=== PATIENT | male | born 1965 | race Caucasian/White ===

== ENCOUNTER 2024-12-05 10:51 | Outpatient (AMB) | payer BC, SELFPAY ==
--- NOTE | 2024-12-05 11:00 | MHC.PC.OV ---
Vital Signs 12/05/24 11:01 Height 5 ft 7.32 in Weight 233 lb BMI 36.1 BP 100/60 Blood Pressure Location Rt brachial Position Sitting Pulse 82 Pulse Source Pulse Oximeter Temp 97.3 F Temp Source Temporal Artery Scan Pulse Oximetry (%) 96 Oxygen Delivery Method Room Air Intake Visit Reasons: New patient/DM Intake Note: Patient is a new patient here to establish care for DM, HTN, Cholesterol, High triglyceride. Transferring care from Dr Sandoval. Medical records have been requested and have not received. Minute Clerk Required: No Forward Air Controller/Air Officer: Not Required per policy Accompanied by: Self / Same As Patient Allergies No Known Allergies Allergy (Verified 12/05/24 11:34) Medication List - Last Reconciled 12/05/24 by GUILLERMO Denson atenolol 50 mg PO DAILY atorvastatin 80 mg PO DAILY ezetimibe 10 mg PO DAILY fenofibrate micronized 200 mg PO DAILY flash glucose scanning reader (FreeStyle Erica 2 [place]) test blood sugar four time daily flash glucose sensor (FreeStyle Erica 2 Sensor kit) test blood sugar four time daily gabapentin 600 mg PO BID insulin degludec (Tresiba FlexTouch U-100 insulin) 75 units subcut BID insulin lispro-aabc (Lyumjev KwikPen U-200 Insulin) 52 units subcut TID lisinopril 5 mg PO DAILY metformin 1,000 mg PO BID Tobacco use date assessed: 12/05/24 Dental Screening Dental Screen Date: 12/05/24 Did you have a dental visit in the last 12 months?: No Did you have a dental problem in the last 6 months where you did not have access to dental care?: No Was dental information given to patient?: No HPI New patient/DM HPI Details Previous PCP: Dr. 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 Possibly a muscle strain from sleeping position Patient reports that he has not been taking any medications for this Discussed with patient that he should try warm compress at this time or try getting a massage Patient to return in 2 weeks for lab review and discussion of chronic illnesses, will f/u about his neck as well We will follow up and neck pain then . [facility] Medical History (Updated 12/05/24 @ 12:54 by GUILLERMO Denson) Diabetic neuropathy HTN (hypertension) Diabetes mellitus associated with pancreatic disease Pancreatitis Surgical History History of knee surgery History of eye surgery Family History (Updated 12/05/24 @ 12:52 by GUILLERMO Denson) Father ESRD (end stage renal disease) Maternal Aunt Diabetes Social History Housing: House Alcohol intake: never Patient Tobacco Use Status: Former Tobacco user (quite 2010) e-Cigarette/Vaping Use: Never Used Second Hand Smoke Exposure: Yes service: No Current occupational status: employed 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 1. Little interest or pleasure in doing things: not at all 2. Feeling down, depressed, or hopeless: not at all 3. Trouble falling or staying asleep, or sleeping too much: several days 4. Feeling tired or having little energy: several days 5. Poor appetite or overeating: not at all 6. Feeling bad about yourself - or that you are a failure or have let yourself or your family down: not at all 7. Trouble concentrating on things, such as reading the newspaper or watching television: not at all 8. Moving or speaking so slowly that other people could have noticed. Or the opposite - being so fidgety or restless that you have been moving around a lot more than usual: not at all 9. Thoughts that you would be better off or of hurting yourself in some way: not at all Total score: 2 Depression Screening Interpretation: Negative Depression Screening Done: Yes 07380 - PHQ-9 Billing: Yes Source: Developed by Drs. Arslan Fontenot, Jenn Win, Perez Cartagena and colleagues, with an educational stephen from [employer]. Thrive Questionnaire Date Thrive assessed: 12/05/24 I am a: Patient What is your living situation today?: I have a steady place to live Within the past 12 months, did the food you bought not last and you didn't have the money to get more?: Never true Within the past 12 months, did you worry whether your food would run out before you got money to buy more?: I choose not to answer this question Do you have trouble paying for medicines?: No Do you have trouble getting transportation to medical appointments?: No Do you have trouble paying your heating and electricity bill?: No Do you have trouble taking care of your child, family member or friend?: I choose not to answer this question Do you have trouble with day-to-day activities such as bathing, preparing meals, shopping, managing finances, etc.?: No Are you currently unemployed and looking for a job?: No Are you interested in more education?: Yes Please select the resources that you would like help with: None Currently or been in a relationship where the following occur: No concerns reported THRIVE Score: 0 AUDIT C Alcohol Use Questionnaire (AUDIT-C) 1. How often do you have a drink containing alcohol?: Never Total Score: 0 RIYA-7 AMB Questionnaire RIYA-7 Date RIYA - 7 assessed: 12/05/24 Feeling nervous, anxious, or on edge: 0 = Not at all Not being able to stop or control worryin = Not at all Worrying too much about different things: 1 = Several days Trouble relaxin = Several days Being so restless that it is hard to sit still: 0 = Not at all Becoming easily annoyed or irritable: 0 = Not at all Feeling afraid as if something awful might happen: 0 = Not at all Total RIYA-7 score (0-4 normal; 5-9 mild; 10-14 moderate; 15-21 severe): 2 Source: Developed by Drs. Arslan Fontenot, Jenn Win, Perez Cartagena and colleagues, with an educational stephen from [employer]. RIYA-7 Assessment Billing RIYA-7 Assessment Tool: RIYA-7 Assessment 41542 Review of Systems Const Details: Denies chills, Denies fatigue, Denies fever(s), Denies headache(s) and Denies weakness HEENT Denies change in vision, Denies dizziness, Denies headache(s), Denies hearing loss, Denies nasal congestion, Denies sinus pain, Denies sinus pressure and Denies sore throat other: left side of neck pain ( noticed this after waking up, increases with certain positions, like when he goes to tie his shoe) Card Denies chest pain, Denies lightheadedness, Denies dyspnea and Denies other (palpitations) Resp Denies cough, Denies dyspnea and Denies wheezing GI Denies abdominal pain, Denies melena, Denies hematochezia, Denies change in bowel habits, Denies dyspepsia and Denies nausea Denies hematuria and Denies dysuria Musc Denies abnormal gait, Denies myalgias, Denies arthralgias, Denies numbness and Denies tingling Skin/Breast Denies rash, Denies unusual bruising and Denies wounds Neuro Denies abnormal gait, Denies dizziness, Denies headache(s), Denies memory loss, Denies numbness, Denies Sensory deficit (Neuro), Denies tingling and Denies weakness Psych Denies anxiety, Denies depression and Denies memory loss Endo Denies cold intolerance, Denies fatigue, Denies heat intolerance, Denies polydipsia and Denies polyuria Rojelio/Lymph Denies easy bleeding and Denies easy bruising Aller/Immun Denies wheezing Physical exam (Primary Care) Vital Signs: Last Vital Signs Temp 97.3 F 12/05/24 11:01 Pulse 82 12/05/24 11:01 BP 100/60 12/05/24 11:01 Pulse Ox 96 12/05/24 11:01 Oxygen Delivery Method Room Air 12/05/24 11:01 BMI result Body Mass Index 36.1 Tobacco/Smoking Status: Tobacco use Status Tobacco use date assessed 12/05/24 12/05/24 11:22 Patient Tobacco Use Status Former Tobacco user (quite 12/05/24 11:22 2010) e-Cigarette/Vaping Use Never Used 12/05/24 11:22 PHQ-9: PHQ-9 Score PHQ-9: Total score 2 12/05/24 11:37 Depression Screening Interpretation: Negative Thrive Assessment: Date of Thrive Assessment Date Thrive assessed 12/05/24 12/05/24 11:22 Currently or been in a relationship where the following occur: No concerns reported Const Other: General: no acute distress, well developed, alert and awake Nutritional Appearance: well nourished Orientation/consciousness: patient oriented x3 HENMT Head: Yes normocephalic and Yes atraumatic Ears: hearing grossly normal bilaterally and TM's normal bilaterally General nose exam: Normal external nose present and Normal nares present Mouth: Normal oral and palatal mucosa present and moist mucous membranes Throat: Yes oropharynx normal left neck: no edema, no erythema, +ROM, no cervical tenderness Eyes Pupils: Equal, round and reactive pupils present and Pupil accommodation reflex normal EOM: EOMs intact bilaterally Neck Neck: Yes normal visual inspection, Yes no lymphadenopathy and Yes trachea midline Thyroid: Thyroid normal Carotids: no bruits Lymphatic: no lymphadenopathy noted Chest Chest palpation & inspection: normal inspection of the chest Resp Effort & Inspection: normal respiratory effort Auscultation: clear to auscultation bilaterally Cardio Rate: regular rate Rhythm: regular rhythm Heart sounds: S1 normal heart sound present, S2 normal heart sound present, no gallops, no murmurs and no rubs GI Palpation (GI): Abdomen is soft and nontender to palpation Auscultation: normal bowel sounds General: Yes no CVA tenderness Skin General: warm and dry. Normal skin color. Normal skin turgor Lesions: no lesions Nails: normal Neuro General: patient oriented x3, gait normal Cranial nerves: Yes Equal, round and reactive pupils present Cognition (Neuro): normal cognition Gait exam (Neuro): Normal gait present Extrem General: Yes normal to inspection, No edema and No calf tenderness Psych Appearance: grossly normal Affect: normal affect Attitude: cooperative Thought process: Normal thought process present Results AMB Hemoglobin A1c AMB Hemoglobin A1c 6.1 % Last Edit by GUERITA Brown on 12/05/24 11:35 Results Reviewed Results Reviewed: Laboratory Last Values Hgb A1c (Clinic) 6.1 % (4.0-6.0) H 12/05/24 11:26 Coding Level of Care Code New Pt Level 4 (60495) Diagnoses Diabetes mellitus associated with pancreatic disease E11.69; K86.9 Hypertension, unspecified type I10 Hypertension type: unspecified Fatty liver K76.0 Diabetic polyneuropathy associated with diabetes mellitus due to underlying condition E08.42 Diabetes mellitus complication detail: diabetic polyneuropathy Diabetes mellitus type: due to underlying condition Neck pain on left side M54.2 Additional Codes RIYA-7 Assessment Billing - RIYA-7 Assessment Tool: RIYA-7 Assessment 33089 ([id number]) PHQ-9 - 71086 - PHQ-9 Billing: Yes ([id number]) Time Spent (min) 43 Assessment & Plan Assessment & Plan (1) Diabetes mellitus associated with pancreatic disease: Code(s): E11.69 - Type 2 diabetes mellitus with other specified complication; K86.9 - Disease of pancreas, unspecified Category: Medical Plan: Patient reports that he has type C diabetes due to having pancreatitis three times. He is insulin dependent. His A1C in office 6.1% Reinforced low sugar/carbohydrate diet/activity as tolerated Continue dgludec 75 unkits BID, lispro U-200 insulin 52 units s.c TID and metformin 1000mg BID Will refer the patient to endocrinology (2) HTN (hypertension): Code(s): I10 - Essential (primary) hypertension Category: Medical Qualifiers: Hypertension type: unspecified Qualified Code(s): I10 - Essential (primary) hypertension Plan: Reinforced low sodium diet. BP 100/60 in office, continue lisinopril 5 mg daily and atenolol 50 mg daily (3) Fatty liver: Code(s): K76.0 - Fatty (change of) liver, not elsewhere classified Category: Medical Plan: The patient reports that he was told that he has a fatty liver. Will have to get the patient records. Labs ordered for the patient to do august and to return to 2 weeks for evaluation and lab review Discussed with the patient that at times high cholesterol can cause fatty liver, so he should consume low fat/cholesterol foods (4) Diabetic neuropathy: Code(s): E11.40 - Type 2 diabetes mellitus with diabetic neuropathy, unspecified Category: Medical Qualifiers: Diabetes mellitus complication detail: diabetic polyneuropathy Diabetes mellitus type: due to underlying condition Qualified Code(s): E08.42 - Diabetes mellitus due to underlying condition with diabetic polyneuropathy Plan: Continue gabapentin 600mg BID (5) Neck pain on left side: Code(s): M54.2 - Cervicalgia Category: Medical Plan: The patient to apply warm compress on and off for 20 minutes. The patient was encouraged to get a massage as well Will reevaluate in 2 weeks when the patient return. Discussed with the patient that I do not want to prescribe anything without knowing his kidney function Orders: Orders Comprehensive [place]. Panel Fast Today E11.9 - Type 2 diabetes mellitus without complications, E78.5 - Hyperlipidemia, unspecified, Z00.00 - Encounter for general adult medical examination without abnormal findings Vitamin D 25-OH Total Today E11.9 - Type 2 diabetes mellitus without complications, E78.5 - Hyperlipidemia, unspecified, Z00.00 - Encounter for general adult medical examination without abnormal findings Hemoglobin A1c Today E11.9 - Type 2 diabetes mellitus without complications, E78.5 - Hyperlipidemia, unspecified, Z00.00 - Encounter for general adult medical examination without abnormal findings TSH reflex Free T4 Today E11.9 - Type 2 diabetes mellitus without complications, E78.5 - Hyperlipidemia, unspecified, Z00.00 - Encounter for general adult medical examination without abnormal findings AMB Hemoglobin A1c Today Z13.9 - Encounter for screening, unspecified Complete Blood Count Auto Diff Today E11.9 - Type 2 diabetes mellitus without complications, E78.5 - Hyperlipidemia, unspecified, Z00.00 - Encounter for general adult medical examination without abnormal findings Lipid Panel Today E11.9 - Type 2 diabetes mellitus without complications, E78.5 - Hyperlipidemia, unspecified, Z00.00 - Encounter for general adult medical examination without abnormal findings Glucose Fasting Today E11.9 - Type 2 diabetes mellitus without complications, E78.5 - Hyperlipidemia, unspecified, Z00.00 - Encounter for general adult medical examination without abnormal findings UA CC w/rflx Micro + Cult Today E11.9 - Type 2 diabetes mellitus without complications, E78.5 - Hyperlipidemia, unspecified, Z00.00 - Encounter for general adult medical examination without abnormal findings Referrals Endocrinology Referral E11.69 - Type 2 diabetes mellitus with other specified complication, K86.9 - Disease of pancreas, unspecified Medications: New atorvastatin 80 mg PO DAILY 90 tabs 3RF gabapentin 600 mg PO BID 60 tabs 3RF insulin lispro-aabc (Lyumjev KwikPen U-200 Insulin) before meals 52 units (0.26 mL) subcut TID 6 mL 0RF lisinopril 5 mg PO DAILY 30 tabs 3RF metformin 1,000 mg PO BID 30 days 60 tabs 3RF atenolol 50 mg PO DAILY 30 tabs 3RF ezetimibe 10 mg PO DAILY 90 tabs 3RF fenofibrate micronized 200 mg PO DAILY 90 caps 3RF insulin degludec (Tresiba FlexTouch U-100 insulin) 75 units (0.75 mL) subcut BID 15 mL 3RF
[2024-12-05 11:01] VITALS: BP 100/60; PULSE 82; TEMP 36.3; O2SAT 96; BMI 36.1
== END 2024-12-05 12:03 | disposition home or self-care (01) ==
DX: E11.69 Type 2 diabetes mellitus with other specified complication (principal); K86.9 Disease of pancreas, unspecified; I10 Essential (primary) hypertension; K76.0 Fatty (change of) liver, not elsewhere classified; M54.2 Cervicalgia

== ENCOUNTER → 2024-12-05 10:51 | Outpatient (BNVA) | payer BC, SELFPAY | DX: K85.90 Acute pancreatitis without necrosis or infection, unspecified (principal); E08.69 Diabetes mellitus due to underlying condition with other specified complication; E08.42 Diabetes mellitus due to underlying condition with diabetic polyneuropathy; I10 Essential (primary) hypertension; K76.0 Fatty (change of) liver, not elsewhere classified; M54.2 Cervicalgia; Z79.4 Long term (current) use of insulin; Z79.84 Long term (current) use of oral hypoglycemic drugs; Z79.899 Other long term (current) drug therapy | CPT/HCPCS: 83036; 96127 ==

== ENCOUNTER 2024-12-08 10:13 | Outpatient (REF) | payer BC, SELFPAY ==
[2024-12-08 10:42] LABS: MANUAL DIFF FLAG NO
[2024-12-08 11:12] LABS: Basophils Absolute Auto 0.1 X10*3/uL (0.0-0.2); Basophils Percent Auto 1.4 % (0-2); Eosinophils Absolute Auto 0.2 X10*3/uL (0.0-0.4); Eosinophils Percent Auto 5.1 % (0-4); Hematocrit 43.9 % (42.0-52.0); Hemoglobin 15.4 g/dl (14.0-18.0); Imm Gran Abs Auto 0.02 X10*3/uL (0.00-0.03); Imm Gran Pct Auto 0.5 % (0.0-0.4); Lymphocytes Absolute Auto 1.1 X10*3/uL (1.2-4.9); Lymphocytes Percent Auto 25.3 % (20-40); Mean Corpuscular HGB Conc 35.1 g/dl (31.0-36.0); Mean Corpuscular Hemoglobin 33.3 pg (27.0-33.0); Mean Corpuscular Volume 94.8 fL (80.0-98.0); Mean Platelet Volume 10.9 fL (9.4-12.4); Monocytes Absolute Auto 0.5 X10*3/uL (0.1-1.2); Monocytes Percent Auto 11.9 % (2-11); Neutrophils Absolute Auto 2.4 x10*3/uL (2.0-8.3); Neutrophils Percent Auto 55.8 % (45-73); Platelet Count 191 X10*3/uL (160-400); Red Blood Count 4.63 X10*6/uL (4.60-5.80); Red Cell Distribution Width 13.9 % (11.0-16.0); White Blood Count 4.3 X10*3/uL (4.8-10.8)
[2024-12-08 11:16] LABS: Estimated Average Glucose 128 mg/dL; Hemoglobin A1C 170.9474 umol/L; Hemoglobin A1c % 6.1 % (<6.0); Total Hemoglobin (HGBA1C) 3986.7395 umol/L
[2024-12-08 11:43] LABS: Appearance Urine Clear; Color Urine Yellow; Glucose Urine UA >=1000 mg/dL (Negative); Leukocyte Esterase Urine Negative (Negative); Nitrite Urine Negative (Negative); PH 6.5 (5.0-9.0); Specific Gravity - Urine >= 1.030 (1.005-1.025); UMIC TRIGGER UACC YES; Urine Blood Negative (Negative); Urine Ketones Negative (Negative); Urine Protein Negative (Neg-Trace)
[2024-12-08 11:45] LABS: Bacteria Urine None Seen (None Seen); Hyaline Casts Urine 0-2 /LPF (0-2); RBC Urine 0-2 /HPF (0-2); Squamous Epithelial Cell Urine 0-2 /HPF (0-2); WBC Urine 0-5 /HPF (0-5)
[2024-12-08 12:21] LABS: Alanine Aminotransferase 58 U/L (0-40); Albumin Level 4.7 g/dL (3.5-5.0); Alkaline Phosphatase 36 U/L (39-117); Anion Gap 17 (12-20); Aspartate Amino Transferase 31 U/L (5-37); Bilirubin Total 0.5 mg/dL (0.0-1.0); Blood Urea Nitrogen 21 mg/dL (9-16); Calcium 10.3 mg/dL (8.4-10.2); Carbon Dioxide 26 mmol/L (22-29); Chloride 103 mmol/L (96-108); Cholesterol 315 mg/dL (<200); Estimated Glomerular Filt Rate > 60; Glucose Fasting 161 mg/dL (60-99); HDL Cholesterol 38 mg/dL (>40); Potassium 4.9 mmol/L (3.3-5.1); Sodium 141 mmol/L (135-145); Total Protein 8.6 g/dL (6.5-8.0); Triglycerides 884 mg/dL (<150)
[2024-12-08 12:35] LABS: TSH reflex Free T4 1.21 uIU/mL (0.32-4.0); Vitamin D 25-OH Total 23.9 ng/mL (>30)
== END 2024-12-08 10:14 | disposition home or self-care (01) ==
LOC: HO.LAB 10:13
PROVIDERS: PCP Internal Medicine
DX: Z00.00 Encounter for general adult medical examination without abnormal findings (principal); E11.9 Type 2 diabetes mellitus without complications; E78.5 Hyperlipidemia, unspecified; Z13.228 Encounter for screening for other metabolic disorders
CPT/HCPCS: 36415; 80053; 80061; 81001; 82306; 83036; 84443; 85025

== ENCOUNTER 2024-12-20 15:19 | Outpatient (AMB) | payer BC, SELFPAY ==
[2024-12-20 16:02] VITALS: BP 116/80; PULSE 83; O2SAT 94; BMI 36.1
--- NOTE | 2024-12-20 16:02 | MHC.PC.OV ---
Vital Signs 12/20/24 16:02 Height 5 ft 7.5 in Weight 234 lb 4 oz BMI 36.1 BP 116/80 Blood Pressure Location Lt brachial Position Sitting Pulse 83 Pulse Source Pulse Oximeter Pulse Oximetry (%) 94 Oxygen Delivery Method Room Air Intake Visit Reasons: DM/HTN/HLD Check Airman Required: No Accompanied by: Self / Same As Patient Allergies No Known Allergies Allergy (Verified 12/30/24 22:45) Medication List - Last Reconciled 12/30/24 by GUILLERMO Denson atenolol 50 mg PO DAILY atorvastatin 80 mg PO DAILY blood-glucose sensor (MeludiaStyle Erica 3 Plus Sensor device) Apply 1 new sensor every 15 days as directed to monitor blood glucose continuously. ezetimibe 10 mg PO DAILY fenofibrate micronized 200 mg PO DAILY flash glucose scanning reader (MeludiaStyle Erica 2 [place]) test blood sugar four time daily flash glucose sensor (FreeStyle Erica 2 Sensor kit) test blood sugar four time daily gabapentin 600 mg PO BID insulin degludec (Tresiba FlexTouch U-200 insulin) 90 units (0.45 mL) subcut BEDTIME insulin lispro-aabc (Lyumjev KwikPen U-200 Insulin) 50 units subcut TID lisinopril 5 mg PO DAILY meloxicam 15 mg PO DAILY 30 days metformin 1,000 mg PO BID 30 days Tobacco use date assessed: 12/20/24 Dental Screening Dental Screen Date: 12/20/24 Did you have a dental visit in the last 12 months?: No Did you have a dental problem in the last 6 months where you did not have access to dental care?: No Was dental information given to patient?: Patient has dentist HPI DM/HTN/HLD HPI Details Patient is a 59-year-old male presenting follow up chronic conditions and lab review Patient continue to report left neck pain radiating into left shoulder area Recent labs completed-here for review Patient denies chest pain, shortness of breath, heart palpitation, or dizziness He denies change in bowel habits or abdominal pain or nausea Denies any urinary symptoms. The patient reports that he is expecting that his labs is going to be elevated since he was out of his medications for a while [facility] Medical History (Updated 12/30/24 @ 23:22 by Ketan Martinez, S[employer]LECTOR-C) Diabetic neuropathy HTN (hypertension) Diabetes mellitus associated with pancreatic disease Pancreatitis Surgical History History of knee surgery History of eye surgery Family History Father ESRD (end stage renal disease) Maternal Aunt Diabetes Social History Housing: House Alcohol intake: never Patient Tobacco Use Status: Former Tobacco user (quite 2010) e-Cigarette/Vaping Use: Never Used Second Hand Smoke Exposure: Yes service: No Current occupational status: employed 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 1. Little interest or pleasure in doing things: not at all 2. Feeling down, depressed, or hopeless: not at all 3. Trouble falling or staying asleep, or sleeping too much: several days 4. Feeling tired or having little energy: several days 5. Poor appetite or overeating: not at all 6. Feeling bad about yourself - or that you are a failure or have let yourself or your family down: not at all 7. Trouble concentrating on things, such as reading the newspaper or watching television: not at all 8. Moving or speaking so slowly that other people could have noticed. Or the opposite - being so fidgety or restless that you have been moving around a lot more than usual: not at all 9. Thoughts that you would be better off or of hurting yourself in some way: not at all Total score: 2 Depression Screening Interpretation: Negative Depression Screening Done: Yes Source: Developed by Drs. Arslan Fontenot, Jenn Win, Perez Cartagena and colleagues, with an educational stephen from [employer]. Thrive Questionnaire Date Thrive assessed: 12/20/24 I am a: Patient What is your living situation today?: I have a steady place to live Within the past 12 months, did the food you bought not last and you didn't have the money to get more?: Never true Within the past 12 months, did you worry whether your food would run out before you got money to buy more?: I choose not to answer this question Do you have trouble paying for medicines?: No Do you have trouble getting transportation to medical appointments?: No Do you have trouble paying your heating and electricity bill?: No Do you have trouble taking care of your child, family member or friend?: I choose not to answer this question Do you have trouble with day-to-day activities such as bathing, preparing meals, shopping, managing finances, etc.?: No Are you currently unemployed and looking for a job?: No Are you interested in more education?: Yes Please select the resources that you would like help with: None Currently or been in a relationship where the following occur: No concerns reported THRIVE Score: 0 AUDIT C Alcohol Use Questionnaire (AUDIT-C) 1. How often do you have a drink containing alcohol?: Never 3. How often do you have six or more drinks on one occasion?: Never Total Score: 0 RIYA-7 AMB Questionnaire RIYA-7 Date RIYA - 7 assessed: 12/20/24 Feeling nervous, anxious, or on edge: 0 = Not at all Not being able to stop or control worryin = Not at all Worrying too much about different things: 1 = Several days Trouble relaxin = Several days Being so restless that it is hard to sit still: 0 = Not at all Becoming easily annoyed or irritable: 0 = Not at all Feeling afraid as if something awful might happen: 0 = Not at all Total RIYA-7 score (0-4 normal; 5-9 mild; 10-14 moderate; 15-21 severe): 2 Source: Developed by Drs. Arslan Fontenot, Jenn Win, Perez Cartagena and colleagues, with an educational stephen from [employer]. Review of Systems Const Denies headache(s) Eyes Denies loss of vision ENT Denies vertigo, Denies dizziness, Denies headache(s), Reports neck pain (Left neck pain radiating into left shoulder) and Denies sore throat Card Denies chest pain, Denies leg edema and Denies lightheadedness Resp Denies cough, Denies hemoptysis and Denies wheezing GI Denies abdominal pain, Denies melena, Denies constipation, Denies diarrhea and Denies vomiting Denies dysuria, Denies urinary frequency and Denies urinary urgency Musc Denies arthralgias, Denies joint swelling, Reports neck pain (Left neck pain radiating into left shoulder), Denies numbness and Denies tingling Neuro Denies Abnormal speech present, Denies behavioral changes, Denies vertigo, Denies dizziness, Denies headache(s), Denies loss of vision, Denies memory loss, Denies numbness and Denies tingling Psych Denies anxiety, Denies behavioral changes, Denies depression, Denies memory loss and Denies panic attacks Rojelio/Lymph Denies easy bleeding and Denies easy bruising Aller/Immun Denies wheezing Physical exam (Primary Care) Vital Signs: Last Vital Signs Pulse 83 12/20/24 16:02 BP 116/80 12/20/24 16:02 Pulse Ox 94 12/20/24 16:02 Oxygen Delivery Method Room Air 12/20/24 16:02 BMI result Body Mass Index 36.1 Tobacco/Smoking Status: Tobacco use Status Tobacco use date assessed 12/20/24 12/20/24 16:07 Patient Tobacco Use Status Former Tobacco user (quite 12/20/24 16:02 2010) e-Cigarette/Vaping Use Never Used 12/20/24 16:02 PHQ-9: PHQ-9 Score PHQ-9: Total score 2 12/20/24 16:25 Depression Screening Interpretation: Negative Thrive Assessment: Date of Thrive Assessment Date Thrive assessed 12/20/24 12/20/24 16:07 Currently or been in a relationship where the following occur: No concerns reported Const General: healthy appearing, no acute distress, alert and awake Nutritional Appearance: well nourished Orientation/consciousness: oriented to person, oriented to place and oriented to time HENMT Ears: TM's normal bilaterally General nose exam: Normal nasal mucous membranes and turbinates present Eyes Conjunctivae: conjunctivae normal Sclerae: sclerae normal Pupils: Equal, round and reactive pupils present Neck Neck: Yes full ROM, Yes no lymphadenopathy, No anterior neck swelling, Yes tender (Posterior neck, left, lateral) and Yes no JVD Thyroid: Thyroid normal Carotids: no bruits Resp Effort & Inspection: normal respiratory effort and not tachypneic Auscultation: no crackles, no rales, no rhonchi and no wheezes Cardio Rate: regular rate Rhythm: regular rhythm Heart sounds: no murmurs and normal S1 and S2 GI Palpation (GI): Soft to palpation, nontender, no hepatomegaly and no splenomegaly Auscultation: normal bowel sounds General: Yes no CVA tenderness Back/Spine/Pelvis Back: no CVA tenderness Cervical Spine: cervical muscular tenderness Thoracic/Lumbar Spine: No thoracic spinal tenderness and No lumbar spinal tenderness Skin General skin exam: no rashes or lesions noted and dry skin Neuro General: oriented to person, oriented to place and oriented to time Cranial nerves: Yes Equal, round and reactive pupils present Speech: No Abnormal speech present Gait exam (Neuro): Normal gait present Motor exam (neuro): no tremor noted Extrem Right upper extremity: full ROM Left upper extremity: full ROM and shoulder/upper arm Details: tenderness and normal ROM; no swelling, no crepitus, no deformity and no unsual warmth Shoulder/upper arm images: 1. Tenderness over the trapezius muscle Right lower extremity: full ROM; no edema Left lower extremity: full ROM; no edema Psych Mental Status: mental status grossly normal Speech and movement: Normal speech and movement present Affect: normal affect Attitude: cooperative Thought process: Normal thought process present Results Reviewed Results Reviewed: Laboratory Tests 12/08/24 12/08/24 12/28/24 10:39 10:40 14:42 WBC 4.3 L RBC 4.63 Hgb 15.4 Hct 43.9 Plt Count 191 Sodium 141 Potassium 4.9 Chloride 103 BUN 21 H Creatinine 0.82 Estimated GFR > 60 Glucose (Clinic) 125 H Hemoglobin A1c % 6.1 H Calcium 10.3 H Total Bilirubin 0.5 AST 31 ALT 58 H Alkaline Phosphatase 36 L Total Protein 8.6 H Albumin 4.7 Triglycerides 884 H Cholesterol 315 H HDL Cholesterol 38 L 25-OH Vitamin D Total 23.9 L TSH 1.21 Urine Color Yellow Urine Appearance Clear Urine pH 6.5 Ur Specific [place] >= 1.030 H Urine Protein Negative Urine Glucose (UA) >=1000 H Urine Ketones Negative Urine Blood Negative Urine Nitrite Negative Ur Leukocyte Esterase Negative Urine RBC 0-2 Urine WBC 0-5 Ur Squamous Epith Cells 0-2 Urine Bacteria None Seen Hyaline Casts 0-2 Coding Level of Care Code Est Pt Level 4 (87926) Diagnoses Diabetic polyneuropathy associated with diabetes mellitus due to underlying condition E08.42 Diabetes mellitus type: due to underlying condition Diabetes mellitus complication detail: diabetic polyneuropathy Hypertension, unspecified type I10 Hypertension type: unspecified Diabetes mellitus associated with pancreatic disease E11.69; K86.9 Mixed hyperlipidemia E78.2 Hyperlipidemia type: mixed hyperlipidemia Neck pain on left side M54.2 Fatty liver K76.0 Elevated alanine aminotransferase (ALT) level R74.01 Time Spent (min) 38 Assessment & Plan Assessment & Plan (1) Diabetic neuropathy: Code(s): E11.40 - Type 2 diabetes mellitus with diabetic neuropathy, unspecified Category: Medical Qualifiers: Diabetes mellitus type: due to underlying condition Diabetes mellitus complication detail: diabetic polyneuropathy Qualified Code(s): E08.42 - Diabetes mellitus due to underlying condition with diabetic polyneuropathy Plan: Continue gabapentin 600mg BID (2) HTN (hypertension): Code(s): I10 - Essential (primary) hypertension Category: Medical Qualifiers: Hypertension type: unspecified Qualified Code(s): I10 - Essential (primary) hypertension Plan: Reinforced low sodium diet. 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 He is insulin dependent. His A1C in office 6.1% Reinforced low sugar/carbohydrate diet/activity as tolerated Continue dgludec 75 unkits BID, lispro U-200 insulin 52 units s.c TID and metformin 1000mg BID The was referred to endocrine on previous visit and has an upcoming appt (4) Hyperlipidemia: Code(s): E78.5 - Hyperlipidemia, unspecified Category: Medical Qualifiers: Hyperlipidemia type: mixed hyperlipidemia Qualified Code(s): E78.2 - Mixed hyperlipidemia Plan: Tri 884, total cholesterol 315 and HDL 38 Patient has been out of his medication for a little while. Atorvastatin 80 mg daily, ezetimibe 10 mg daily, fenofibrate micronized 200 mg daily were reordered at previous visit and the patient already started medications. We will recheck labs in 3 months (5) Neck pain on left side: Code(s): M54.2 - Cervicalgia Category: Medical Plan: Ongoing Left neck pain radiating into left shoulder. Meloxicam 15 mg daily ordered. X-ray of the cervical spine ordered Continue conservative measures-warm compress, range of movement and stretches (6) Fatty liver: Code(s): K76.0 - Fatty (change of) liver, not elsewhere classified Category: Medical Plan: The patient reports that he was told that he has a fatty liver. Discussed with the patient that at times high cholesterol can cause fatty liver, so he should consume low fat/cholesterol foods Patient cholesterol is significantly elevated-he was out of his medications for a while. Medications were reordered and the patient already started taking medications- we will recheck labs in 3 months (7) Elevated alanine aminotransferase (ALT) level: Code(s): R74.01 - Elevation of levels of liver transaminase levels Category: Medical Plan: This is most likely elevated due to elevated cholesterol. Reinforced a diet low in cholesterol and activity as tolerated Refrain from taking Tylenol or drinking alcohol. Continue cholesterol-lowering medications. We will recheck labs in 3 months Orders: Orders Lipid Panel 3 Months E08.42 - Diabetes mellitus due to underlying condition with diabetic polyneuropathy, K76.0 - Fatty (change of) liver, not elsewhere classified, I10 - Essential (primary) hypertension, E11.69 - Type 2 diabetes mellitus with other specified complication, K86.9 - Disease of pancreas, unspecified, E78.5 - Hyperlipidemia, unspecified UA CC w/rflx Micro + Cult 3 Months E08.42 - Diabetes mellitus due to underlying condition with diabetic polyneuropathy, K76.0 - Fatty (change of) liver, not elsewhere classified, I10 - Essential (primary) hypertension, E11.69 - Type 2 diabetes mellitus with other specified complication, K86.9 - Disease of pancreas, unspecified, E78.5 - Hyperlipidemia, unspecified Glucose Fasting 3 Months E08.42 - Diabetes mellitus due to underlying condition with diabetic polyneuropathy, K76.0 - Fatty (change of) liver, not elsewhere classified, I10 - Essential (primary) hypertension, E11.69 - Type 2 diabetes mellitus with other specified complication, K86.9 - Disease of pancreas, unspecified, E78.5 - Hyperlipidemia, unspecified Hemoglobin A1c 3 Months E08.42 - Diabetes mellitus due to underlying condition with diabetic polyneuropathy, K76.0 - Fatty (change of) liver, not elsewhere classified, I10 - Essential (primary) hypertension, E11.69 - Type 2 diabetes mellitus with other specified complication, K86.9 - Disease of pancreas, unspecified, E78.5 - Hyperlipidemia, unspecified Vitamin D 25-OH Total 3 Months E08.42 - Diabetes mellitus due to underlying condition with diabetic polyneuropathy, K76.0 - Fatty (change of) liver, not elsewhere classified, I10 - Essential (primary) hypertension, E11.69 - Type 2 diabetes mellitus with other specified complication, K86.9 - Disease of pancreas, unspecified, E78.5 - Hyperlipidemia, unspecified XR cervical spine 3V 12/20/24 M54.2 - Cervicalgia Complete Blood Count Auto Diff 3 Months E08.42 - Diabetes mellitus due to underlying condition with diabetic polyneuropathy, K76.0 - Fatty (change of) liver, not elsewhere classified, I10 - Essential (primary) hypertension, E11.69 - Type 2 diabetes mellitus with other specified complication, K86.9 - Disease of pancreas, unspecified, E78.5 - Hyperlipidemia, unspecified Comprehensive [place]. Panel Fast 3 Months E08.42 - Diabetes mellitus due to underlying condition with diabetic polyneuropathy, K76.0 - Fatty (change of) liver, not elsewhere classified, I10 - Essential (primary) hypertension, E11.69 - Type 2 diabetes mellitus with other specified complication, K86.9 - Disease of pancreas, unspecified, E78.5 - Hyperlipidemia, unspecified TSH reflex Free T4 3 Months E08.42 - Diabetes mellitus due to underlying condition with diabetic polyneuropathy, K76.0 - Fatty (change of) liver, not elsewhere classified, I10 - Essential (primary) hypertension, E11.69 - Type 2 diabetes mellitus with other specified complication, K86.9 - Disease of pancreas, unspecified, E78.5 - Hyperlipidemia, unspecified Medications: New meloxicam 15 mg PO DAILY 30 tabs 2RF 30 days M54.2 - Cervicalgia Changed From insulin degludec 75 units (0.75 mL) subcut BID 15 mL 3RF To insulin degludec (Tresiba FlexTouch U-100 insulin) 75 units (0.75 mL) subcut BID 45 mL 3RF 30 days From insulin lispro-[facility] before meals 52 units (0.26 mL) subcut TID 6 mL 0RF To insulin lispro-aabc (Cipriano [place]ello U-200 Insulin) before meals 52 units (0.26 mL) subcut TID 70.2 mL 3RF 90 days
== END 2024-12-20 16:37 | disposition home or self-care (01) ==
LOC: HO.HMCH 15:20
DX: K86.9 Disease of pancreas, unspecified (principal); E08.42 Diabetes mellitus due to underlying condition with diabetic polyneuropathy; I10 Essential (primary) hypertension; E78.2 Mixed hyperlipidemia; M54.2 Cervicalgia; K76.0 Fatty (change of) liver, not elsewhere classified; R74.01 Elevation of levels of liver transaminase levels

== ENCOUNTER 2024-12-28 14:12 | Outpatient (AMB) | payer BC, SELFPAY ==
--- NOTE | 2024-12-28 14:24 | MHC.OFFVIS ---
Vital Signs 12/28/24 14:27 Height 5 ft 7.5 in Weight 243 lb 6.245 oz BMI 37.6 BP 118/74 Blood Pressure Location Lt brachial Position Sitting Pulse 75 Pulse Source Pulse Oximeter Pulse Oximetry (%) 94 Oxygen Delivery Method Room Air Intake Visit Reasons: Type 2 diabetes mellitus Intake Note: New patient internally referred by PCP for Diabetes Management. Last Diabetic Eye exam: Over 1 year ago In [place], needs a referral. 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 He was diagnosed with diabetes over 15 years ago. 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 He does have a family history of type 2 diabetes as well. He recently moved from [place] to [place] to be closer to his family. He does not drink alcohol. He quit smoking 15 years ago. He exercises, but he has not recently since [place]oc[place], and he notices his blood sugars have been higher. I reviewed today's Erica 2 download: CGM active: 53% Average glucose: 184 Very high (>250): 9 % High (181-250): 50 % Target range (70-180):41 % Low (55-69): 0% Very low (<55): 0% Hemoglobin a1c 6.1% 12/05/2024. Current medication regimen: Tresiba 85 units daily and insulin lispro 50 units 3 times a day before meals and metformin 1000 mg twice a day. Past medications: Novolin changed to Tresiba and lispro when he moved from [place] to [place]. Patient says he was on Tresiba 85 units twice a day, but he was going to run out of the medication when he was relocating to [place] so he decreased it so it would last longer. His primary care provider sent the prescription for twice daily dosing, but the insurance did not cover it. Compliance issues: none Diet: Breakfast- eggs, turkey chavez, sometimes wheat bread Lunch- vegetables, turkey Dinner- protein and vegetables, sometimes yams or potato Snacks/desserts: none No soda. Drinks crystal light with no sugar. Hypoglycemia symptoms: None Hyperglycemia symptoms: Thirsty Eye exam: due Microvascular complications: neuropathy in feet and hands Macrovascular complications: none Hypertension: treated with lisinopril 5 mg, atenolol 50 mg Hyperlipidemia: treated with atorvastatin 80 mg, Zetia 10 mg, fenofibrate 200 mg. Restarted medications a week ago. ROS: Constitutional: No unexplained weight loss, fever, chills, fatigue or night sweats. Eyes: No vision changes, blurry vision, double vision Respiratory: No shortness of breath, cough or sputum production. Cardiovascular: No chest pain, chest pressure or chest discomfort. No palpitations or pedal edema. Neurologic: No headache, dizziness, syncope, unilateral weakness, ataxia Skin: No rash or open wounds Endocrine: No cold or heat intolerance. No polyuria or polydipsia. Physical exam: Constitutional: Alert, in no distress. Eyes: Pupils are equal, round and reactive to light. Extraocular muscles intact. Neck: Supple, Full range of motion. No lymphadenopathy. No palpable thyroid masses. Respiratory: Clear to auscultation. Cardiovascular: S1 S2 regular. No murmurs. Right foot: Warm and well perfused. No clubbing, cyanosis or edema. DP pulse intact. Mildly decreased vibratory sensation. Intact sensation to monofilament. Left foot: Warm and well perfused. No clubbing, cyanosis or edema. Intact DP pulse. Mildly decreased vibratory sensation. Intact sensation to monofilament. 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 Current occupational exposures/hazards: No Cognitive needs: No Hearing needs: No Vision needs: Yes (Glasses) Physical Exam Vital Signs: Last Vital Signs Pulse 75 12/28/24 14:27 BP 118/74 12/28/24 14:27 Pulse Ox 94 12/28/24 14:27 Oxygen Delivery Method Room Air 12/28/24 14:27 BMI result Body Mass Index 37.6 Results Reviewed Results Reviewed: Laboratory Tests 12/08/24 12/08/24 10:39 10:40 Plt Count 191 Creatinine 0.82 Estimated GFR > 60 Hemoglobin A1c % 6.1 H AST 31 ALT 58 H Alkaline Phosphatase 36 L Triglycerides 884 H Cholesterol 315 H LDL Cholesterol, Calc TNP HDL Cholesterol 38 L TSH 1.21 Urine Protein Negative Assessment & Plan Assessment & Plan (1) Diabetes mellitus associated with pancreatic disease: Code(s): E11.69 - Type 2 diabetes mellitus with other specified complication; K86.9 - Disease of pancreas, unspecified Category: Medical Plan In summary this is a 59-year-old male with a past medical history of diabetes due to pancreatic injury with a hemoglobin A1c at goal of less than 7% but recent sensor data shows some hyperglycemia. We reviewed the risks of uncontrolled type 2 diabetes and complications. He is due for an eye exam. Patient says he will call to schedule this. Diabetic diet reinforced. He is going to start exercising again. Increase Tresiba to 90 units daily. If he is not able to get this from the pharmacy he will contact the office. Continue insulin lispro 50 units 3 times a day before meals. Continue metformin 1000 mg twice daily. He recently restarted his medications for hyperlipidemia. He had run out of the medications prior to his last labs. His primary care provider placed orders to repeat the tests in 3 months. I have ordered additional labs including C-peptide, RIYA antibody, islet cell antibody, B12 and microalbumin. His blood pressure is well-controlled. He is on an ENRIKE inhibitor. It is medically necessary to change the patient to a Erica 3+ sensor since he is on 4 insulin injections per day, this is more accurate than the Erica 2 and provides continuous glucose monitoring and monitoring for hypoglycemia. Erica to his being discontinued. Follow up in 6 weeks for diabetes. Orders: Orders B Type Natriuretic Peptide Today E11.9 - Type 2 diabetes mellitus without complications Glutamic acid decarboxylase Ab Today E11.69 - Type 2 diabetes mellitus with other specified complication, K86.9 - Disease of pancreas, unspecified Islet Cell Antibody Scrn/Titer Today E11.69 - Type 2 diabetes mellitus with other specified complication, K86.9 - Disease of pancreas, unspecified Vitamin B12 Today Z91.89 - Other specified personal risk factors, not elsewhere classified Microalbumin, Random (w Creat) Today E11.9 - Type 2 diabetes mellitus without complications C Peptide Today E11.69 - Type 2 diabetes mellitus with other specified complication, K86.9 - Disease of pancreas, unspecified Medications: New blood-glucose sensor (FreeStyle Erica 3 Plus Sensor device) Apply 1 new sensor every 15 days as directed to monitor blood glucose continuously. 6 ea 3RF E11.69 - Type 2 diabetes mellitus with other specified complication, K86.9 - Disease of pancreas, unspecified insulin degludec (Tresiba FlexTouch U-200 insulin) 90 units (0.45 mL) subcut BEDTIME 45 mL 5RF Discontinued insulin degludec (Tresiba FlexTouch U-100 insulin) Discontinued Reason: Doctor's Order 75 units (0.75 mL) subcut BID 30 days 45 mL 3RF Coding Level of Care Code New Pt Level 4 (77398) Complex EM visit Add On G2211 Diagnoses Diabetes mellitus associated with pancreatic disease E11.69; K86.9
[2024-12-28 14:27] VITALS: BP 118/74; PULSE 75; O2SAT 94; BMI 37.6
[2024-12-28 14:47] LABS: Glucose, Whole Blood 125 mg/dL (60-115)
== END 2024-12-28 15:22 | disposition home or self-care (01) ==
LOC: HO.ENCR 14:13
PROVIDERS: Visit Provider Physician Assistant Medical
DX: E11.69 Type 2 diabetes mellitus with other specified complication (principal); K86.9 Disease of pancreas, unspecified

== ENCOUNTER → 2024-12-28 14:12 | Outpatient (BNVA) | payer BC, SELFPAY | PROVIDERS: Visit Provider Physician Assistant Medical | DX: E11.69 Type 2 diabetes mellitus with other specified complication (principal); K86.9 Disease of pancreas, unspecified; E78.5 Hyperlipidemia, unspecified; Z79.4 Long term (current) use of insulin; Z79.84 Long term (current) use of oral hypoglycemic drugs | CPT/HCPCS: 82947 ==

== ENCOUNTER 2025-05-20 14:20 | Outpatient (AMB) | payer BC, SELFPAY ==
[2025-05-20 14:26] VITALS: BP 110/70; PULSE 90; RESP 18; O2SAT 95; BMI 37.8
--- NOTE | 2025-05-20 14:26 | MHC.PC.OV ---
Vital Signs 05/20/25 14:26 Height 5 ft 7 in Weight 241 lb 8 oz BMI 37.8 BP 110/70 Blood Pressure Location Lt brachial Position Sitting Respiration 18 Pulse 90 Pulse Source Pulse Oximeter Temp Source Temporal Artery Scan Pulse Oximetry (%) 95 Oxygen Delivery Method Room Air Intake Visit Reasons: Annual PE RE Vaccine Manager Required: No Accompanied by: Self / Same As Patient Allergies No Known Allergies Allergy (Verified 05/20/25 14:47) Medication List - Last Reconciled 05/20/25 by GUILLERMO Denson atenolol 50 mg PO DAILY atorvastatin 80 mg PO DAILY blood-glucose sensor (GrownOut G7 Sensor device) apply new sensor every 10 days as directed blood-glucose,paddock judge,cont (Dexcom G7 Trust Vault Custodian) As directed ezetimibe 10 mg PO DAILY fenofibrate micronized 200 mg PO DAILY gabapentin 600 mg PO BID insulin degludec (Tresiba FlexTouch U-200 insulin) 90 units (0.45 mL) subcut BEDTIME insulin lispro-aabc (Lyumjev KwikPen U-200 Insulin) 50 units subcut TID lisinopril 5 mg PO DAILY meloxicam 15 mg PO DAILY 30 days metformin 1,000 mg PO BID 30 days Tobacco use date assessed: 05/20/25 Dental Screening Dental Screen Date: 05/20/25 Did you have a dental visit in the last 12 months?: No Did you have a dental problem in the last 6 months where you did not have access to dental care?: No Was dental information given to patient?: Patient has dentist HPI Annual PE RE HPI Details The patient is a 60-year-old male who is presenting for annual physical Dentist: up to date Eye:over two years Snellen: Right: Left: Corrected vision: glasses STI screening:n/a Colonoscopy:colonoscopy are two years ago. Reports that he is on 10 year plan Pap Smer:n/a PHQ-9: Flu:Report taking this yearly-last July, COVID: x5 Tdap:reports that he does remember when he had this done, but he thinks that it was with 10 years Diet: Reports regular health diet Exercise:no-reports that he used to but now, he will in the future The patient is a 60-year-old male presenting with concerns of insomnia, anxiety, and diabetes management. The patient reports experiencing insomnia for the past two to three months, characterized by difficulty falling asleep and staying asleep, often waking up at 2:00 AM or 3:00 AM and unable to return to sleep until 5:00 AM. He has attempted to use melatonin to aid sleep but finds it ineffective, leading to daytime sleepiness. The patient denies consuming caffeine or energy drinks at night, with his last coffee intake around 4:00 PM or 5:00 PM. The patient describes episodes of anxiety, particularly at night, feeling as though he cannot breathe and needing to leave the bed to calm down. He reports no significant stressors in his life and maintains that his job and personal life are stable. Despite this, he experiences a sensation of the room closing in on him, prompting him to turn on lights and walk around to alleviate the feeling. The patient has a history of diabetes mellitus, with recent episodes of hyperglycemia reaching nearly 300 mg/dL, which has since stabilized to around 116 mg/dL with insulin management. He notes that during the hyperglycemic episodes, he was not consuming food but still experienced elevated blood glucose levels. The patient has missed an endocrinology appointment and plans to reschedule. The patient reports persistent left elbow pain exacerbated by movement, particularly when fishing, and notes that meloxicam has not provided relief. He is concerned about the potential side effects of steroid injections on cartilage and has not pursued this treatment option. The patient has a recurrent skin lesion on his back that refills with pus every two to three days despite being drained and cleaned with alcohol. This issue has persisted for over two months, and he is concerned about potential infection. 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 1. Little interest or pleasure in doing things: not at all 2. Feeling down, depressed, or hopeless: not at all 3. Trouble falling or staying asleep, or sleeping too much: several days 4. Feeling tired or having little energy: several days 5. Poor appetite or overeating: not at all 6. Feeling bad about yourself - or that you are a failure or have let yourself or your family down: not at all 7. Trouble concentrating on things, such as reading the newspaper or watching television: not at all 8. Moving or speaking so slowly that other people could have noticed. Or the opposite - being so fidgety or restless that you have been moving around a lot more than usual: not at all 9. Thoughts that you would be better off or of hurting yourself in some way: not at all Total score: 2 Depression Screening Interpretation: Negative Depression Screening Done: Yes Source: Developed by Drs. Arslan Fontenot, Jenn Win, Perez Cartagena and colleagues, with an educational stephen from [employer]. Thrive Questionnaire Date Thrive assessed: 05/20/25 I am a: Patient What is your living situation today?: I have a steady place to live Within the past 12 months, did the food you bought not last and you didn't have the money to get more?: Never true Within the past 12 months, did you worry whether your food would run out before you got money to buy more?: I choose not to answer this question Do you have trouble paying for medicines?: No Do you have trouble getting transportation to medical appointments?: No Do you have trouble paying your heating and electricity bill?: No Do you have trouble taking care of your child, family member or friend?: I choose not to answer this question Do you have trouble with day-to-day activities such as bathing, preparing meals, shopping, managing finances, etc.?: No Are you currently unemployed and looking for a job?: No Are you interested in more education?: Yes Please select the resources that you would like help with: None Currently or been in a relationship where the following occur: No concerns reported THRIVE Score: 0 AUDIT C Alcohol Use Questionnaire (AUDIT-C) 1. How often do you have a drink containing alcohol?: Never 3. How often do you have six or more drinks on one occasion?: Never Total Score: 0 RIYA-7 AMB Questionnaire RIYA-7 Date RIYA - 7 assessed: 05/20/25 Feeling nervous, anxious, or on edge: 0 = Not at all Not being able to stop or control worryin = Not at all Worrying too much about different things: 1 = Several days Trouble relaxin = Several days Being so restless that it is hard to sit still: 0 = Not at all Becoming easily annoyed or irritable: 0 = Not at all Feeling afraid as if something awful might happen: 0 = Not at all Total RIYA-7 score (0-4 normal; 5-9 mild; 10-14 moderate; 15-21 severe): 2 Source: Developed by Drs. Arslan Fontenot, Jenn Win, Perez Cartagena and colleagues, with an educational stephen from [employer]. Review of Systems Const Reports daytime sleepiness, Reports difficulty sleeping and Denies headache(s) Eyes Denies loss of vision ENT Denies vertigo, Denies dizziness, Denies headache(s), Reports neck pain and Denies sore throat Card Denies chest pain, Denies leg edema and Denies lightheadedness Resp Denies cough, Denies hemoptysis and Denies wheezing GI Denies abdominal pain, Denies melena, Denies constipation, Denies diarrhea and Denies vomiting Denies dysuria, Denies urinary frequency and Denies urinary urgency Musc Reports arthralgias (Left elbow pain and left shoulder), Denies joint swelling, Reports neck pain, Denies numbness and Denies tingling Skin/Breast Reports furuncle (Upper back) Neuro Denies Abnormal speech present, Denies behavioral changes, Denies vertigo, Denies dizziness, Denies headache(s), Denies loss of vision, Denies memory loss, Denies numbness and Denies tingling Psych Reports anxiety (Feels like the room is closing in on him-affecting sleep), Denies behavioral changes, Denies depression, Denies memory loss and Denies panic attacks Rojelio/Lymph Denies easy bleeding and Denies easy bruising Aller/Immun Denies wheezing Physical exam (Primary Care) Vital Signs: Last Vital Signs Pulse 90 05/20/25 14:26 Resp 18 05/20/25 14:26 BP 110/70 05/20/25 14:26 Pulse Ox 95 05/20/25 14:26 Oxygen Delivery Method Room Air 05/20/25 14:26 BMI result Body Mass Index 37.8 Tobacco/Smoking Status: Tobacco use Status Tobacco use date assessed 05/20/25 05/20/25 14:37 Patient Tobacco Use Status Former Tobacco user (quite 05/20/25 14:37 2010) e-Cigarette/Vaping Use Never Used 05/20/25 14:37 PHQ-9: PHQ-9 Score PHQ-9: Total score 2 05/20/25 18:40 Depression Screening Interpretation: Negative Thrive Assessment: Date of Thrive Assessment Date Thrive assessed 05/20/25 05/20/25 14:37 Currently or been in a relationship where the following occur: No concerns reported Const General: healthy appearing, no acute distress, alert and awake Nutritional Appearance: well nourished Orientation/consciousness: oriented to person, oriented to place and oriented to time HENMT Ears: TM's normal bilaterally General nose exam: Normal nasal mucous membranes and turbinates present Eyes Conjunctivae: conjunctivae normal Sclerae: sclerae normal Pupils: Equal, round and reactive pupils present Neck Neck: Yes no lymphadenopathy and Yes no JVD Thyroid: Thyroid normal Carotids: no bruits Resp Effort & Inspection: normal respiratory effort and not tachypneic Auscultation: no crackles, no rales, no rhonchi and no wheezes Cardio Rate: regular rate Rhythm: regular rhythm Heart sounds: no murmurs and normal S1 and S2 GI Palpation (GI): Soft to palpation, nontender, no hepatomegaly and no splenomegaly Auscultation: normal bowel sounds Back/Spine/Pelvis Back/spine/pelvis image:  1. Epidermal cyst Skin General skin exam: no rashes or lesions noted and dry skin Neuro General: oriented to person, oriented to place and oriented to time Cranial nerves: Yes Equal, round and reactive pupils present Speech: No Abnormal speech present Gait exam (Neuro): Normal gait present Motor exam (neuro): no tremor noted Deep tendon reflexes (DTR's): Right brachioradialis reflex intensity grade: 2+, Left brachioradialis reflex intensity grade: 2+, Right patellar reflex intensity grade: 2+ and Left patellar reflex intensity grade: 2+ Extrem Right upper extremity: full ROM Left upper extremity: full ROM, shoulder/upper arm Details: tenderness (Over trapezius muscle); no swelling and elbow/forearm Details: no tenderness and no swelling Right lower extremity: full ROM; no edema Left lower extremity: full ROM; no edema Psych Mental Status: mental status grossly normal Speech and movement: Normal speech and movement present Affect: normal affect Attitude: cooperative Thought process: Normal thought process present Coding Level of Care Code Est Pt Prev Care 40-64y([id number]) Diagnoses Annual physical exam Z00.00 Hypertension, unspecified type I10 Hypertension type: unspecified Mixed hyperlipidemia E78.2 Hyperlipidemia type: mixed hyperlipidemia Diabetes mellitus associated with pancreatic disease E11.69; K86.9 Fatty liver K76.0 Elevated alanine aminotransferase (ALT) level R74.01 Diabetic polyneuropathy associated with diabetes mellitus due to underlying condition E08.42 Diabetes mellitus complication detail: diabetic polyneuropathy Diabetes mellitus type: due to underlying condition Neck pain on left side M54.2 Left elbow pain M25.522 Epidermal cyst L72.0 Time Spent (min) 39 Assessment & Plan Assessment & Plan (1) Annual physical exam: Code(s): Z00.00 - Encounter for general adult medical examination without abnormal findings Category: Medical Plan: Preventative guidelines reviewed with the patient. Colonoscopy 2 years ago to be repeated in 10 years. Patient is up-to-date on most preventative interventions. No recent labs to further evaluate the patient's ongoing health issues. Encouraged to complete blood work as soon as possible. (2) HTN (hypertension): Code(s): I10 - Essential (primary) hypertension Category: Medical Qualifiers: Hypertension type: unspecified Qualified Code(s): I10 - Essential (primary) hypertension Plan: Reinforced low sodium diet. BP 110/70 in office, continue lisinopril 5 mg daily and atenolol 50 mg daily (3) Hyperlipidemia: Code(s): E78.5 - Hyperlipidemia, unspecified Category: Medical Qualifiers: Hyperlipidemia type: mixed hyperlipidemia Qualified Code(s): E78.2 - Mixed hyperlipidemia Plan: Tri 884, total cholesterol 315 and HDL 38 on 12/08/2024. Encouraged the patient to complete follow up labs august Patient has been out of his medication for a little while. Atorvastatin 80 mg daily, ezetimibe 10 mg daily, fenofibrate micronized 200 mg daily were reordered at previous visit and the patient already started medications. (4) Diabetes mellitus associated with pancreatic disease: Code(s): E11.69 - Type 2 diabetes mellitus with other specified complication; K86.9 - Disease of pancreas, unspecified Category: Medical Plan: Patient reports that he has type C diabetes due to having pancreatitis three times. He is insulin dependent. His A1C in office 6.1% Reinforced low sugar/carbohydrate diet/activity as tolerated Continue degludec 90 units s.c at bedtime, lispro U-200 insulin 52 units s.c TID and metformin 1000mg BID Follow up with Endocrine as scheduled (5) Fatty liver: Code(s): K76.0 - Fatty (change of) liver, not elsewhere classified Category: Medical Plan: The patient reports that he was told that he has a fatty liver. Discussed with the patient that at times high cholesterol can cause fatty liver, so he should consume low fat/cholesterol foods Patient cholesterol is significantly elevated-he was out of his medications for a while. Medications were reordered and the patient already started taking medications at previous visit. The patient as yet to repeat follow up labs. Encouraged a complete this is soon as possible. (6) Elevated alanine aminotransferase (ALT) level: Code(s): R74.01 - Elevation of levels of liver transaminase levels Category: Medical Plan: This is most likely elevated due to elevated cholesterol. Reinforced a diet low in cholesterol and activity as tolerated Refrain from taking Tylenol or drinking alcohol. Continue cholesterol-lowering medications. Complete follow up labs to further evaluate august. (7) Diabetic neuropathy: Code(s): E11.40 - Type 2 diabetes mellitus with diabetic neuropathy, unspecified Category: Medical Qualifiers: Diabetes mellitus complication detail: diabetic polyneuropathy Diabetes mellitus type: due to underlying condition Qualified Code(s): E08.42 - Diabetes mellitus due to underlying condition with diabetic polyneuropathy Plan: Continue gabapentin 600mg BID (8) Neck pain on left side: Code(s): M54.2 - Cervicalgia Category: Medical Plan: Ongoing Left neck pain radiating into left shoulder. Meloxicam 15 mg daily was ordered ordered. X-ray of the cervical spine was ordered ordered. The patient has not completed cervical x-ray as yet. Continue conservative measures-warm compress, range of movement and stretches (9) Left elbow pain: Code(s): M25.522 - Pain in left elbow Category: Medical Plan: Left elbow x-ray ordered to further evaluate. No acute finding on exam. (10) Epidermal cyst: Code(s): L72.0 - Epidermal cyst Category: Medical Plan: Purulent drainage was squeezed out of cyst. Minocycline 100 mg q.12 hours x7 days ordered Orders: Orders XR elbow LT min 3V 05/20/25 M25.522 - Pain in left elbow RT home sleep study 05/20/25 R40.0 - Somnolence, R06.81 - Apnea, not elsewhere classified, R06.83 - Snoring Complete Blood Count Auto Diff 3 Months I10 - Essential (primary) hypertension, E78.2 - Mixed hyperlipidemia, E11.69 - Type 2 diabetes mellitus with other specified complication, K86.9 - Disease of pancreas, unspecified, K76.0 - Fatty (change of) liver, not elsewhere classified, R74.01 - Elevation of levels of liver transaminase levels, M54.2 - Cervicalgia, M25.522 - Pain in left elbow, R40.0 - Somnolence, E08.42 - Diabetes mellitus due to underlying condition with diabetic polyneuropathy, R06.81 - Apnea, not elsewhere classified, R06.83 - Snoring Comprehensive [place]. Panel Fast 3 Months I10 - Essential (primary) hypertension, E78.2 - Mixed hyperlipidemia, E11.69 - Type 2 diabetes mellitus with other specified complication, K86.9 - Disease of pancreas, unspecified, K76.0 - Fatty (change of) liver, not elsewhere classified, R74.01 - Elevation of levels of liver transaminase levels, M54.2 - Cervicalgia, M25.522 - Pain in left elbow, R40.0 - Somnolence, E08.42 - Diabetes mellitus due to underlying condition with diabetic polyneuropathy, R06.81 - Apnea, not elsewhere classified, R06.83 - Snoring Lipid Panel 3 Months I10 - Essential (primary) hypertension, E78.2 - Mixed hyperlipidemia, E11.69 - Type 2 diabetes mellitus with other specified complication, K86.9 - Disease of pancreas, unspecified, K76.0 - Fatty (change of) liver, not elsewhere classified, R74.01 - Elevation of levels of liver transaminase levels, M54.2 - Cervicalgia, M25.522 - Pain in left elbow, R40.0 - Somnolence, E08.42 - Diabetes mellitus due to underlying condition with diabetic polyneuropathy, R06.81 - Apnea, not elsewhere classified, R06.83 - Snoring UA CC w/rflx Micro + Cult 3 Months I10 - Essential (primary) hypertension, E78.2 - Mixed hyperlipidemia, E11.69 - Type 2 diabetes mellitus with other specified complication, K86.9 - Disease of pancreas, unspecified, K76.0 - Fatty (change of) liver, not elsewhere classified, R74.01 - Elevation of levels of liver transaminase levels, M54.2 - Cervicalgia, M25.522 - Pain in left elbow, R40.0 - Somnolence, E08.42 - Diabetes mellitus due to underlying condition with diabetic polyneuropathy, R06.81 - Apnea, not elsewhere classified, R06.83 - Snoring Vitamin D 25-OH Total 3 Months I10 - Essential (primary) hypertension, E78.2 - Mixed hyperlipidemia, E11.69 - Type 2 diabetes mellitus with other specified complication, K86.9 - Disease of pancreas, unspecified, K76.0 - Fatty (change of) liver, not elsewhere classified, R74.01 - Elevation of levels of liver transaminase levels, M54.2 - Cervicalgia, M25.522 - Pain in left elbow, R40.0 - Somnolence, E08.42 - Diabetes mellitus due to underlying condition with diabetic polyneuropathy, R06.81 - Apnea, not elsewhere classified, R06.83 - Snoring Hemoglobin A1c 3 Months I10 - Essential (primary) hypertension, E78.2 - Mixed hyperlipidemia, E11.69 - Type 2 diabetes mellitus with other specified complication, K86.9 - Disease of pancreas, unspecified, K76.0 - Fatty (change of) liver, not elsewhere classified, R74.01 - Elevation of levels of liver transaminase levels, M54.2 - Cervicalgia, M25.522 - Pain in left elbow, R40.0 - Somnolence, E08.42 - Diabetes mellitus due to underlying condition with diabetic polyneuropathy, R06.81 - Apnea, not elsewhere classified, R06.83 - Snoring TSH reflex Free T4 3 Months I10 - Essential (primary) hypertension, E78.2 - Mixed hyperlipidemia, E11.69 - Type 2 diabetes mellitus with other specified complication, K86.9 - Disease of pancreas, unspecified, K76.0 - Fatty (change of) liver, not elsewhere classified, R74.01 - Elevation of levels of liver transaminase levels, M54.2 - Cervicalgia, M25.522 - Pain in left elbow, R40.0 - Somnolence, E08.42 - Diabetes mellitus due to underlying condition with diabetic polyneuropathy, R06.81 - Apnea, not elsewhere classified, R06.83 - Snoring Medications: New trazodone 50 mg PO BEDTIME PRN 60 tabs 2RF sleep minocycline 100 mg PO Q12H 14 caps 0RF 7 days Changed From metformin 1,000 mg PO BID 30 days 60 tabs 3RF To metformin 1,000 mg PO BID 60 tabs 3RF 30 days Refilled atorvastatin 80 mg PO DAILY 90 tabs 3RF ezetimibe 10 mg PO DAILY 90 tabs 3RF atenolol 50 mg PO DAILY 30 tabs 3RF fenofibrate micronized 200 mg PO DAILY 90 caps 3RF gabapentin 600 mg PO BID 60 tabs 3RF lisinopril 5 mg PO DAILY 30 tabs 3RF meloxicam 15 mg PO DAILY 30 tabs 0RF 30 days M54.2 - Cervicalgia
== END 2025-05-20 15:22 | disposition home or self-care (01) ==
LOC: HO.HMCH 14:21
DX: Z00.00 Encounter for general adult medical examination without abnormal findings (principal); E11.69 Type 2 diabetes mellitus with other specified complication; I10 Essential (primary) hypertension; E78.2 Mixed hyperlipidemia; K86.9 Disease of pancreas, unspecified; K76.0 Fatty (change of) liver, not elsewhere classified; R74.01 Elevation of levels of liver transaminase levels; M54.2 Cervicalgia; M25.522 Pain in left elbow; L72.0 Epidermal cyst

== ENCOUNTER 2025-07-02 15:22 | Outpatient (AMB) | payer BC, SELFPAY ==
--- NOTE | 2025-07-02 15:28 | A.OFFVIS_ITS ---
Vital Signs 07/02/25 15:31 Height 5 ft 7 in Weight 245 lb 13.047 oz BMI 38.5 BP 110/72 Blood Pressure Location Lt brachial Position Sitting Pulse 78 Pulse Source Pulse Oximeter Pulse Oximetry (%) 96 Oxygen Delivery Method Room Air Intake Visit Reasons: T2DM Intake Note: Patient present today to follow up on T2DM. Last Diabetic Eye exam: 1.5 or 2 years ago, requesting referral Last Podiatry Visit: Does not see a Commercial Sheet Metal Foreman, requesting referral Random Glucose: 99 mg/dl HgA1C: 6.9% 07/02/2025 Lacquer Pin Press Operator Required: No Accompanied by: Self / Same As Patient Allergies No Known Allergies Allergy (Verified 07/02/25 15:32) Medication List - Last Reconciled 07/02/25 by REHAN Montana atenolol 50 mg PO DAILY atorvastatin 80 mg PO DAILY blood-glucose sensor (Dexcom G7 Sensor device) apply new sensor every 10 days as directed blood-glucose,rooming house inspector,cont (Dexcom G7 Planning Consultant) As directed ezetimibe 10 mg PO DAILY fenofibrate micronized 200 mg PO DAILY gabapentin 600 mg PO BID glucose (Dex4 Glucose Quick Dissolve) 16 grams (4 x 4 gram) PO Q15M PRN insulin degludec (Tresiba FlexTouch U-200 insulin) 90 units (0.45 mL) subcut BEDTIME insulin lispro-aabc (Lyumjev KwikPen U-200 Insulin) subcutaneously 50 units before breakfast, 40 units before lunch and 50 units before dinner lisinopril 5 mg PO DAILY meloxicam 15 mg PO DAILY 30 days metformin 1,000 mg PO BID 30 days minocycline 100 mg PO Q12H 7 days trazodone 50 mg PO BEDTIME PRN HPI Comments Details: This is a 60-year-old male with a past medical history of hepatic steatosis, hypertension, diabetes associated with pancreatic disease and hyperlipidemia presenting for diabetic management. He was last seen by me in December of 2024. He was diagnosed with diabetes over 15 years ago. 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 He does have a family history of type 2 diabetes as well. He does not drink alcohol. He quit smoking 15 years ago. He started exercising in the last couple of weeks and is experiencing low blood sugars in the afternoon every day. The lowest sugar was 47. He treats with Coca-Cola or glucose tabs. Sometimes he has symptoms like shakiness and feeling hungry, but sometimes he does not feel symptoms. I reviewed his CGM data G IN 7.4% 5% very high 39% high 55% in range 1% low My interpretation is he has a pattern of low blood sugars in the afternoon and some higher sugars in the morning and late evening. Hemoglobin a1c 07/02/2025: 6.9% Current medication regimen: Tresiba 90 units daily and insulin lispro 50 units 3 times a day before meals and metformin 1000 mg twice a day. Past medications: Novolin changed to Tresiba and lispro when he moved from [place] to [place]. Patient says he was on Tresiba 85 units twice a day, but he was going to run out of the medication when he was relocating to [place] so he decreased it so it would last longer. Previously on Jardiance, but he stopped taking it when he moved to [place] because he never disclosed he had was taking it before. He had no side effects on it. Compliance issues: none Hypoglycemia symptoms: None Hyperglycemia symptoms: Polydipsia Eye exam: due, referred Microvascular complications: neuropathy in feet and hands Macrovascular complications: none Hypertension: treated with lisinopril 5 mg, atenolol 50 mg Hyperlipidemia: treated with atorvastatin 80 mg, Zetia 10 mg, fenofibrate 200 mg. He did not have lab work done, but he is going to go this Tuesday. ROS: Constitutional: No unexplained weight loss, fever, chills, fatigue or night sweats. Eyes: No vision changes, blurry vision, double vision Respiratory: No shortness of breath, cough or sputum production. Cardiovascular: No chest pain, chest pressure or chest discomfort. No palpitations or pedal edema. Neurologic: No headache, dizziness, syncope, unilateral weakness, ataxia Skin: No rash or open wounds Endocrine: No cold or heat intolerance. No polyuria or polydipsia. Physical exam: Constitutional: Alert, in no distress. Eyes: Pupils are equal, round and reactive to light. Extraocular muscles intact. Neck: Supple, Full range of motion. No lymphadenopathy. No palpable thyroid masses. Respiratory: Clear to auscultation. Cardiovascular: S1 S2 regular. No murmurs. 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 Current occupational exposures/hazards: No Cognitive needs: No Hearing needs: No Vision needs: Yes (Glasses) Physical Exam Vital Signs: Last Vital Signs Pulse 78 07/02/25 15:31 BP 110/72 07/02/25 15:31 Pulse Ox 96 07/02/25 15:31 Oxygen Delivery Method Room Air 07/02/25 15:31 BMI result Body Mass Index 38.5 Office Procedures Glucose Monitoring Details Details: See [facility] [address] - Glucose monitoring, continuous-physician I&R Procedure code (CPT) selection complete Results AMB Hemoglobin A1c AMB Hemoglobin A1c 6.9 % Last Edit by GUERITA Vegas on 07/02/25 15:50 Results Reviewed Results Reviewed: Laboratory Last Values Glucose (Clinic) 99 mg/dL (60-115) 07/02/25 15:38 Hgb A1c (Clinic) 6.9 % (4.0-6.0) H 07/02/25 15:49 Laboratory Tests 12/08/24 12/08/24 10:39 10:40 Plt Count 191 Creatinine 0.82 Estimated GFR > 60 Hemoglobin A1c % 6.1 H AST 31 ALT 58 H Alkaline Phosphatase 36 L Triglycerides 884 H Cholesterol 315 H LDL Cholesterol, Calc TNP HDL Cholesterol 38 L TSH 1.21 Urine Protein Negative Assessment & Plan Assessment & Plan (1) Diabetes mellitus associated with pancreatic disease: Code(s): E11.69 - Type 2 diabetes mellitus with other specified complication; K86.9 - Disease of pancreas, unspecified Category: Medical Plan In summary this is a 60-year-old male with a past medical history of diabetes due to pancreatic injury. Hemoglobin A1c is at goal less than 7%. Continue Tresiba 60 units daily. Continue insulin lispro 50 units before breakfast, reduce to 40 units before lunch and continue 50 units before dinner. Continue metformin a 1000 mg twice daily. I would like to start him on Jardiance again if C-peptide is normal. If this is low I will refer him to the CDE to discuss insulin pumps. He is open to the idea of a pump if his insurance will cover it. Referred for eye exam Diabetic diet reinforced. He is exercising again. His blood pressure is well-controlled. He is on an ENRIKE inhibitor. Reviewed treatment of hypoglycemia. Glucose tablets sent to the pharmacy. Follow up in 1 month for diabetes. Orders: Orders AMB Hemoglobin A1c Today E11.69 - Type 2 diabetes mellitus with other specified complication, K86.9 - Disease of pancreas, unspecified AMB Glucose Monitoring Today E11.9 - Type 2 diabetes mellitus without complications Creatinine Today E11.9 - Type 2 diabetes mellitus without complications Referrals Ophthalmology Referral E11.69 - Type 2 diabetes mellitus with other specified complication, K86.9 - Disease of pancreas, unspecified Medications: New glucose (Dex4 Glucose Quick Dissolve) until symptoms of low blood sugar are controlled 16 grams (4 x 4 gram) PO Q15M PRN 30 tabs 3RF hypoglycemia Patient Instructions: Continue Tresiba 90 units daily Continue lispro 50 units before breakfast, decrease 40 units before lunch and 50 before dinner Continue metformin 1000 mg twice a day. If you experience low blood sugar, treat this by eating a chewable fruit candy like skittles or jelly beans (about 8 pieces), 4 ounces (1/2 cup) of fruit juice or soda (not diet), 1 tablespoon of honey or 4 glucose tablets. If your blood sugar is under 50, take double the amount of one of the above. Recheck your blood sugar in 15 minutes. Coding Level of Care Code Est Pt Level 4 (21397) Diagnoses Diabetes mellitus associated with pancreatic disease E11.69; K86.9 CPT Codes Details - CPT: 73484 - Glucose monitoring, continuous-physician I&R ([id number])
[2025-07-02 15:31] VITALS: BP 110/72; PULSE 78; O2SAT 96; BMI 38.5
[2025-07-02 15:43] LABS: Glucose, Whole Blood 99 mg/dL (60-115)
== END 2025-07-02 16:09 | disposition home or self-care (01) ==
LOC: HO.ENCR 15:23
PROVIDERS: Visit Provider Physician Assistant Medical
DX: E11.69 Type 2 diabetes mellitus with other specified complication (principal); K86.9 Disease of pancreas, unspecified

== ENCOUNTER → 2025-07-02 15:22 | Outpatient (BNVA) | payer BC, SELFPAY | PROVIDERS: Visit Provider Physician Assistant Medical | DX: E11.69 Type 2 diabetes mellitus with other specified complication (principal); K86.9 Disease of pancreas, unspecified; Z79.4 Long term (current) use of insulin; Z79.84 Long term (current) use of oral hypoglycemic drugs | CPT/HCPCS: 82947; 83036 ==

== ENCOUNTER 2025-07-20 09:05 | Outpatient (REF) | payer BC, SELFPAY ==
--- NOTE | ~2025-07-20 | XR_ITS ---
EXAMINATION: XR ELBOW, LEFT CLINICAL INFORMATION: M25.522 - Pain in left elbow COMPARISON: None available. TECHNIQUE: AP, lateral, and oblique views of the left elbow. FINDINGS: The bones and soft tissues are normal. No fracture or joint effusion. Alignment is anatomic. Joint spaces are maintained. XR/XR elbow LT min 3V IMPRESSION: Normal left elbow. Electronically signed by: Rene Rai MD 07/23/2025 08:10 AM EDT
--- NOTE | ~2025-07-20 | XR_ITS ---
EXAMINATION: XR CERVICAL SPINE CLINICAL INFORMATION: M54.2 - Cervicalgia COMPARISON: None available. TECHNIQUE: 3 views of the cervical spine were obtained. FINDINGS: Minimal levoconvex scoliosis, likely positional. Mild straightening of the normal lordosis, nonspecific. No fracture, compression deformity, or suspicious bone lesion. No subluxations. There is anatomical alignment. Craniocervical junction and C1-2 articulation are intact and normally aligned. Moderate disc degeneration is present C5-6 and C6-7. Mild degeneration present C4-5. C2-3 and C3-4 discs are normal. There is normal facet alignment bilaterally. There are mild multilevel degenerative facet changes. There is no prevertebral soft tissue abnormality. Lung apices are clear. XR/XR cervical spine 3V IMPRESSION: 1. No acute bony abnormalities of the cervical spine. 2. Mild to moderate spondylosis as detailed. Electronically signed by: Rene Rai MD 07/23/2025 08:13 AM EDT
[2025-07-20 09:44] LABS: MANUAL DIFF FLAG NO
[2025-07-20 10:21] LABS: Hematocrit 38.4 % (42.0-52.0); Hemoglobin 13.0 g/dl (14.0-18.0); Imm Gran Abs Auto 0.03 X10*3/uL (0.00-0.03); Imm Gran Pct Auto 0.7 % (0.0-0.4); Lymphocytes Absolute Auto 1.1 X10*3/uL (1.2-4.9); Mean Corpuscular HGB Conc 33.9 g/dl (31.0-36.0); Mean Corpuscular Hemoglobin 33.5 pg (27.0-33.0); Mean Corpuscular Volume 99.0 fL (80.0-98.0); NRBC Abs Auto 0.000 X10*3/uL (0.0-0.012); NRBC Pct Auto 0.0 /100WBC (0.0-0.2); Platelet Count 193 X10*3/uL (160-400); Red Blood Count 3.88 X10*6/uL (4.60-5.80); White Blood Count 4.0 X10*3/uL (4.8-10.8)
[2025-07-20 11:02] LABS: Appearance Urine Clear; Glucose Urine UA Negative (Negative); PH 5.0 (5.0-9.0); Specific Gravity - Urine 1.025 (1.005-1.025); UMIC TRIGGER UACC YES
[2025-07-20 12:04] LABS: Alanine Aminotransferase 63 U/L (0-40); Albumin Level 4.8 g/dL (3.5-5.0); Alkaline Phosphatase 31 U/L (39-117); Anion Gap 11 (12-20); Aspartate Amino Transferase 37 U/L (5-37); Blood Urea Nitrogen 22 mg/dL (9-16); Calcium 9.6 mg/dL (8.4-10.2); Carbon Dioxide 28 mmol/L (22-29); Chloride 107 mmol/L (96-108); Cholesterol 128 mg/dL (<200); Estimated Glomerular Filt Rate > 60; HDL Cholesterol 35 mg/dL (>40); Potassium 5.1 mmol/L (3.3-5.1); Sodium 141 mmol/L (135-145); Total Protein 7.1 g/dL (6.5-8.0); Triglycerides 388 mg/dL (<150)
== END 2025-07-20 09:06 | disposition home or self-care (01) ==
LOC: HO.XRAY 09:05
DX: I10 Essential (primary) hypertension (principal); E78.2 Mixed hyperlipidemia; E11.69 Type 2 diabetes mellitus with other specified complication; K86.9 Disease of pancreas, unspecified; K76.0 Fatty (change of) liver, not elsewhere classified; R74.01 Elevation of levels of liver transaminase levels; E11.42 Type 2 diabetes mellitus with diabetic polyneuropathy; M54.2 Cervicalgia; M25.522 Pain in left elbow; R06.81 Apnea, not elsewhere classified; R06.83 Snoring
CPT/HCPCS: 36415; 72040; 73080; 80053; 80061; 81001; 81003; 82306; 83036; 84443; 85025

== ENCOUNTER → 2025-07-20 09:49 | Outpatient (BNV) | payer BC, SELFPAY | PROVIDERS: Visit Provider Radiology Diagnostic Radiology | DX: M47.812 Spondylosis without myelopathy or radiculopathy, cervical region (principal); M25.522 Pain in left elbow | CPT/HCPCS: 72040; 73080 ==

== ENCOUNTER 2025-07-29 15:23 | Outpatient (AMB) | payer BC, SELFPAY ==
[2025-07-29 15:46] VITALS: BP 152/94; PULSE 81; TEMP 36.4; O2SAT 97; BMI 38.5
--- NOTE | 2025-07-29 15:46 | MHC.PC.OV ---
Vital Signs 07/29/25 15:46 Height 5 ft 7 in Weight 246 lb BMI 38.5 BP 152/94 H Blood Pressure Location Lt brachial Position Sitting Pulse 81 Pulse Source Pulse Oximeter Temp 97.5 F Temp Source Temporal Artery Scan Pulse Oximetry (%) 97 Oxygen Delivery Method Room Air Intake Visit Reasons: Rt. Leg injury Allergies No Known Allergies Allergy (Verified 07/29/25 15:49) Medication List - Last Reconciled 07/29/25 by Jaspreet Elliott MD atenolol 50 mg PO DAILY atorvastatin 80 mg PO DAILY blood-glucose sensor (Dexcom G7 Sensor device) apply new sensor every 10 days as directed blood-glucose,licensed veterinary technician,cont (Dexcom G7 Stringer Up Soldering Machine) As directed ezetimibe 10 mg PO DAILY fenofibrate micronized 200 mg PO DAILY gabapentin 600 mg PO BID glucose (Dex4 Glucose Quick Dissolve) 16 grams (4 x 4 gram) PO Q15M PRN insulin degludec (Tresiba FlexTouch U-200 insulin) 90 units (0.45 mL) subcut BEDTIME insulin lispro-aabc (Lyumjev KwikPen U-200 Insulin) subcutaneously 50 units before breakfast, 40 units before lunch and 50 units before dinner lisinopril 5 mg PO DAILY meloxicam 15 mg PO DAILY 30 days metformin 1,000 mg PO BID 30 days trazodone 50 mg PO BEDTIME PRN Tobacco use date assessed: 07/29/25 Dental Screening Dental Screen Date: 07/29/25 Did you have a dental visit in the last 12 months?: Yes Did you have a dental problem in the last 6 months where you did not have access to dental care?: No Was dental information given to patient?: Patient has dentist HPI HPI Comments History of Present Illness Details The patient is a 60-year-old male presenting with right ankle pain after missing a step. The incident occurred last night when the patient was descending stairs and missed the last step, resulting in a loud cracking sound in the foot. The patient reports significant pain and swelling in the right foot, particularly in the posterior region, and is unable to bear weight without limping. The patient suspects a possible Achilles tendon injury based on internet research but seeks professional evaluation. He reports no recent antibiotic use except for a course of minocycline a month ago for a pimple. The patient has been using maintenance medications for cholesterol and triglycerides but did not specify any recent changes in medication. 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 1. Little interest or pleasure in doing things: not at all 2. Feeling down, depressed, or hopeless: not at all 3. Trouble falling or staying asleep, or sleeping too much: several days 4. Feeling tired or having little energy: several days 5. Poor appetite or overeating: not at all 6. Feeling bad about yourself - or that you are a failure or have let yourself or your family down: not at all 7. Trouble concentrating on things, such as reading the newspaper or watching television: not at all 8. Moving or speaking so slowly that other people could have noticed. Or the opposite - being so fidgety or restless that you have been moving around a lot more than usual: not at all 9. Thoughts that you would be better off or of hurting yourself in some way: not at all Total score: 2 Depression Screening Interpretation: Negative Depression Screening Done: Yes Source: Developed by Drs. Arslan Fontenot, Jenn Win, Perez Cartagena and colleagues, with an educational stephen from [employer]. Thrive Questionnaire Date Thrive assessed: 12/05/24 I am a: Patient What is your living situation today?: I have a steady place to live Within the past 12 months, did the food you bought not last and you didn't have the money to get more?: Never true Within the past 12 months, did you worry whether your food would run out before you got money to buy more?: I choose not to answer this question Do you have trouble paying for medicines?: No Do you have trouble getting transportation to medical appointments?: No Do you have trouble paying your heating and electricity bill?: No Do you have trouble taking care of your child, family member or friend?: I choose not to answer this question Do you have trouble with day-to-day activities such as bathing, preparing meals, shopping, managing finances, etc.?: No Are you currently unemployed and looking for a job?: No Are you interested in more education?: Yes Please select the resources that you would like help with: None Currently or been in a relationship where the following occur: No concerns reported THRIVE Score: 0 AUDIT C Alcohol Use Questionnaire (AUDIT-C) 1. How often do you have a drink containing alcohol?: Never 3. How often do you have six or more drinks on one occasion?: Never Total Score: 0 RIYA-7 AMB Questionnaire RIYA-7 Date RIYA - 7 assessed: 05/20/25 Feeling nervous, anxious, or on edge: 0 = Not at all Not being able to stop or control worryin = Not at all Worrying too much about different things: 1 = Several days Trouble relaxin = Several days Being so restless that it is hard to sit still: 0 = Not at all Becoming easily annoyed or irritable: 0 = Not at all Feeling afraid as if something awful might happen: 0 = Not at all Total RIYA-7 score (0-4 normal; 5-9 mild; 10-14 moderate; 15-21 severe): 2 Source: Developed by Drs. Arslan Fontenot, Jenn Win, Perez Cartagena and colleagues, with an educational stephen from [employer]. Review of Systems Const Details: Not done. Physical exam (Primary Care) Vital Signs: Last Vital Signs Temp 97.5 F 07/29/25 15:46 Pulse 81 07/29/25 15:46 BP 152/94 H 07/29/25 15:46 Pulse Ox 97 07/29/25 15:46 Oxygen Delivery Method Room Air 07/29/25 15:46 BMI result Body Mass Index 38.5 Tobacco/Smoking Status: Tobacco use Status Tobacco use date assessed 07/29/25 07/29/25 15:50 Patient Tobacco Use Status Former Tobacco user (quite 07/29/25 15:50 2010) e-Cigarette/Vaping Use Never Used 07/29/25 15:50 PHQ-9: PHQ-9 Score PHQ-9: Total score 2 07/29/25 15:50 Depression Screening Interpretation: Negative Thrive Assessment: Date of Thrive Assessment Date Thrive assessed 12/05/24 07/29/25 15:50 Currently or been in a relationship where the following occur: No concerns reported Const Other: Pertinent findings are in BOLD GENERAL APPEARANCE NAD, activity normal for age, well developed/ well nourished, no cyanosis, pallor, or diaphoresis. EYES lids/conjunctiva normal. EARS/NOSE/THROAT Mucous membranes moist, nares normal, lips/teeth normal uvula midline without oral pharyngeal erythema, exudate or swelling TMs normal bilaterally. No lymphangitis/lymphedema. HEAD/NECK normocephalic atraumatic, no facial trauma, neck is supple. RESPIRATORY respiratory effort normal, speaks in full sentences, no tripod position, no accessory muscle use. Lungs clear to auscultation without rhonchi, wheezes, rales CARDIAC Regular rate and rhythm, no edema. ABDOMINAL Soft, ND/NT. No evidence of fluid wave. No pulsatile masses on exam, rebound tenderness, Reyes sign or pain over Mcburney's point. MUSCLES/EXTREMITIES No abnormal range of motion, no swelling. Point tenderness at achilles tendon insertion point of the right foot. SKIN Warm, pink and dry. No rashes, dermatoses, petechiae or lesions. NEUROLOGICAL Speech is clear and appropriate. Normal level of consciousness. Gait and coordination are normal. 5/5 strength in all extremities. PSYCH Normal mood and affect. Judgement/competence is appropriate Coding Level of Care Code Est Pt Level 3 (31161) Diagnoses Ankle pain M25.579 Assessment & Plan Assessment & Plan (1) Ankle pain: Code(s): M25.579 - Pain in unspecified ankle and joints of unspecified foot Category: Medical Plan: - Plan to obtain an x-ray of the right foot to rule out fracture. - Prescribed meloxicam for pain management and advised use of Tylenol as needed. - Recommended use of an ankle brace for support and stabilization. - Follow-up appointment scheduled in two weeks to assess improvement. Plan I discussed with the patient the likelihood of a minor injury to the right foot, possibly involving the Achilles tendon, but with low suspicion for a complete tear. We agreed on obtaining an x-ray to rule out a fracture and using meloxicam and Tylenol for pain management. I recommended an ankle brace for support and scheduled a follow-up in two weeks to reassess the condition. If symptoms do not improve, we will consider an MRI to further evaluate the tendon. Orders: Orders XR ankle RT 2V Today M25.579 - Pain in unspecified ankle and joints of unspecified foot Medications: Refilled meloxicam 15 mg PO DAILY 30 tabs 0RF 30 days M54.2 - Cervicalgia
== END 2025-07-29 16:09 | disposition home or self-care (01) ==
LOC: HO.HMCH 15:23
PROVIDERS: Visit Provider Internal Medicine
DX: M25.579 Pain in unspecified ankle and joints of unspecified foot (principal)

== ENCOUNTER 2025-07-29 15:23 | Outpatient (REF) | payer BC, SELFPAY ==
--- NOTE | ~2025-07-29 | XR_ITS ---
EXAMINATION: XR ANKLE, RIGHT CLINICAL INFORMATION: M25.579 - Pain in unspecified ankle and joints of unspecified foot COMPARISON: None available. TECHNIQUE: AP, lateral, and mortise views of the right ankle. FINDINGS: Small corticated ossification inferior to the medial malleolus, suggesting remote trauma. No evidence of acute fracture or dislocation. Ankle mortise is maintained. No suspicious bony lesions. No talar dome OCD. Dorsal talar neck spurring. Moderate posterior calcaneal spurring. Small plantar calcaneus spur. Mild soft tissue swelling. XR/XR ankle RT 2V IMPRESSION: 1. No radiographic evidence of acute fracture or dislocation. 2. Calcaneal spurring. Electronically signed by: Favian Matt MD 07/30/2025 05:04 PM EDT
== END 2025-07-29 15:24 | disposition home or self-care (01) ==
LOC: HO.XRAY 15:23
PROVIDERS: Visit Provider Internal Medicine
DX: M25.571 Pain in right ankle and joints of right foot (principal); M54.2 Cervicalgia
CPT/HCPCS: 73600; 96127

== ENCOUNTER → 2025-07-29 16:27 | Outpatient (BNV) | payer BC, SELFPAY | PROVIDERS: Visit Provider Radiology Diagnostic Ultrasound | DX: M77.31 Calcaneal spur, right foot (principal) | CPT/HCPCS: 73600 ==

== ENCOUNTER 2025-08-08 09:42 | Outpatient (AMB) | payer BC, SELFPAY ==
--- NOTE | 2025-08-08 09:55 | A.OFFPC_ITS ---
Vital Signs 08/08/25 09:56 Height 5 ft 7 in Weight 242 lb 2 oz BMI 37.9 BP 110/66 Blood Pressure Location Lt brachial Position Sitting Pulse 65 Pulse Source Pulse Oximeter Temp 97.1 F Temp Source Temporal Artery Scan Pulse Oximetry (%) 95 Oxygen Delivery Method Room Air Intake Visit Reasons: pain in leg Intake Note: Patient complains of Right Leg pain. Equipment Installer Required: No Biometrics Head: Not Required per policy Accompanied by: Self / Same As Patient Allergies No Known Allergies Allergy (Verified 08/08/25 09:55) Tobacco use date assessed: 08/08/25 Dental Screening Dental Screen Date: 07/29/25 HPI HPI Comments History of Present Illness Details Patient is a 60-year-old male with medical history significant for diabetes mellitus, diabetic neuropathy, hypertension who presents today for righ t ankle pain. He was last seen clinic on 07/29/2025 for acute right ankle pain after missing a step while going down the stairs, twisting his ankle and hearing a crack. He had an x-ray done that shows no evidence of fractures, prescribed a course of meloxicam and recommended use of ankle brace. Today, patient continues to report persistent pain and swelling of ankle for the past 2 weeks. Reports Persistent limping with pain exacerbating by engaging in weight-bearing activities and stepping on his toes, impairing his daily activities. The patient has been using meloxicam and ibuprofen with little relief and expresses concern regarding a potential Achilles tendon injury. Reports he could not use ankle brace as it causes more pain. 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 Current occupational exposures/hazards: No Cognitive needs: No Hearing needs: No Vision needs: Yes (Glasses) Questionnaire Thrive Questionnaire Date Thrive assessed: 12/05/24 I am a: Patient What is your living situation today?: I have a steady place to live Within the past 12 months, did the food you bought not last and you didn't have the money to get more?: Never true Within the past 12 months, did you worry whether your food would run out before you got money to buy more?: I choose not to answer this question Do you have trouble paying for medicines?: No Do you have trouble getting transportation to medical appointments?: No Do you have trouble paying your heating and electricity bill?: No Do you have trouble taking care of your child, family member or friend?: I choose not to answer this question Do you have trouble with day-to-day activities such as bathing, preparing meals, shopping, managing finances, etc.?: No Are you currently unemployed and looking for a job?: No Are you interested in more education?: Yes Please select the resources that you would like help with: None Currently or been in a relationship where the following occur: No concerns reported THRIVE Score: 0 RIYA-7 AMB Questionnaire RIYA-7 Date RIYA - 7 assessed: 05/20/25 Source: Developed by Drs. Arslan Fontenot, Jenn Win, Perez Cartagena and colleagues, with an educational stephen from [employer]. Physical exam (Primary Care) Vital Signs: Last Vital Signs Temp 97.1 F 08/08/25 09:56 Oxygen Delivery Method Room Air 08/08/25 09:56 General: Well-appearing, alert, oriented ?3, in no acute distress. MSK: Limited range of motion of right ankle due to pain. Right ankle swelling and tenderness upon palpation of posterior ankle and calcaneal region appreciated. No erythema. Pedal pulses intact and capillary refill < 2 seconds. Sensation intact. BMI result Body Mass Index 37.9 Tobacco/Smoking Status: Tobacco use Status Tobacco use date assessed 08/08/25 08/08/25 09:59 Patient Tobacco Use Status Former Tobacco user (quite 08/08/25 09:59 2010) e-Cigarette/Vaping Use Never Used 08/08/25 09:59 Thrive Assessment: Date of Thrive Assessment Date Thrive assessed 12/05/24 08/08/25 09:59 Currently or been in a relationship where the following occur: No concerns reported Coding Level of Care Code Est Pt Level 4 (16994) Diagnoses Right ankle pain, unspecified chronicity M25.571 Chronicity: unspecified Laterality: right Assessment & Plan Assessment & Plan (1) Ankle pain: Code(s): M25.579 - Pain in unspecified ankle and joints of unspecified foot Category: Medical Qualifiers: Chronicity: unspecified Laterality: right Qualified Code(s): M25.571 - Pain in right ankle and joints of right foot Plan: Patient presenting with persistent right ankle pain and swelling, aggravated by weight-bearing activities and stepping on his toes for the past 2 weeks despite conservative management with pain medication, leg elevation and icing. Physical exam remarkable for swollen ankle and tenderness upon palpation, with intact pulses and neurological exam. Plan is to obtain MRI for further evaluation of possible tendon injuries. Continue on meloxicam. Patient advised to avoid use of other NSAIDs while on meloxicam like ibuprofen, Motrin, Aleve, Toradol. Orthopedic referral provided for further evaluation and management. Orders: Orders MR ankle RT wo con Today M25.579 - Pain in unspecified ankle and joints of unspecified foot Referrals Orthopedics Referral M25.579 - Pain in unspecified ankle and joints of unspecified foot
[2025-08-08 09:56] VITALS: BP 110/66; PULSE 65; TEMP 36.2; O2SAT 95; BMI 37.9
== END 2025-08-08 10:27 | disposition home or self-care (01) ==
LOC: HO.HMCH 09:43
PROVIDERS: Visit Provider Student in an Organized Health Care Education/Training Program
DX: M25.571 Pain in right ankle and joints of right foot (principal)

== ENCOUNTER 2025-08-20 15:20 | Outpatient (AMB) | payer BC, SELFPAY ==
[2025-08-20 15:29] VITALS: BP 118/68; PULSE 75; RESP 18; O2SAT 97; BMI 38.4
--- NOTE | 2025-08-20 15:29 | MHC.PC.OV ---
Vital Signs 08/20/25 15:29 Height 5 ft 7 in Weight 245 lb BMI 38.4 BP 118/68 Blood Pressure Location Lt brachial Position Sitting Respiration 18 Pulse 75 Pulse Source Pulse Oximeter Temp Source Temporal Artery Scan Pulse Oximetry (%) 97 Oxygen Delivery Method Room Air Intake Visit Reasons: 3mth f/u Radiology Physician Required: No Accompanied by: Self / Same As Patient Allergies No Known Allergies Allergy (Verified 08/28/25 08:41) Medication List - Last Reconciled 08/28/25 by GUILLERMO Denson atenolol 50 mg PO DAILY atorvastatin 80 mg PO DAILY blood-glucose sensor (DexAerin Medical G7 Sensor device) apply new sensor every 10 days as directed blood-glucose,pest control service technician,cont (Dexcom G7 Compensation Coordinator) As directed ezetimibe 10 mg PO DAILY fenofibrate micronized 200 mg PO DAILY gabapentin 600 mg PO BID glucose (Dex4 Glucose Quick Dissolve) 16 grams (4 x 4 gram) PO Q15M PRN insulin degludec (Tresiba FlexTouch U-200 insulin) 90 units (0.45 mL) subcut BEDTIME insulin lispro-aabc (Lyumjev KwikPen U-200 Insulin) subcutaneously 50 units before breakfast, 40 units before lunch and 50 units before dinner lisinopril 5 mg PO DAILY meloxicam 15 mg PO DAILY 30 days metformin 1,000 mg PO BID 30 days trazodone 50 mg PO BEDTIME PRN Tobacco use date assessed: 08/20/25 Dental Screening Dental Screen Date: 08/20/25 Did you have a dental visit in the last 12 months?: No Did you have a dental problem in the last 6 months where you did not have access to dental care?: No Was dental information given to patient?: No HPI 3mth f/u HPI Details The patient is a 60-year-old male presenting for follow-up of ankle pain. He reports right-sided ankle pain for the last 4 months, which he believes may be related to his Achilles tendon. The pain is well-managed when he wears a brace, but he experiences pain when not using it. He is currently awaiting insurance approval for an MRI ordered by a previous provider. The patient also has a recurrent cyst on his left upper back, which requires drainage by his every 2 to 3 days. He describes a sensation of fullness and taut skin before it is drained, and it refills after drainage. A course of medication in October did not resolve the issue. The patient reports a history of elbow pain, which has improved with meloxicam. He was previously taking ibuprofen or meloxicam but stopped the combination and now uses Tylenol for pain. His chronic medications, including atorvastatin and fenofibrate, are out of refills. Recent lab work showed a good A1C and improving triglyceride levels. He has recently started going to the gym. 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 Depression Screening Interpretation: Negative Depression Screening Done: Yes Source: Developed by Drs. Arslan Fontenot, Jenn Win, Perez Cartagena and colleagues, with an educational stephen from [employer]. Thrive Questionnaire Date Thrive assessed: 12/05/24 I am a: Patient What is your living situation today?: I have a steady place to live Within the past 12 months, did the food you bought not last and you didn't have the money to get more?: Never true Within the past 12 months, did you worry whether your food would run out before you got money to buy more?: I choose not to answer this question Do you have trouble paying for medicines?: No Do you have trouble getting transportation to medical appointments?: No Do you have trouble paying your heating and electricity bill?: No Do you have trouble taking care of your child, family member or friend?: I choose not to answer this question Do you have trouble with day-to-day activities such as bathing, preparing meals, shopping, managing finances, etc.?: No Are you currently unemployed and looking for a job?: No Are you interested in more education?: Yes Please select the resources that you would like help with: None Currently or been in a relationship where the following occur: No concerns reported THRIVE Score: 0 RIYA-7 AMB Questionnaire RIYA-7 Date RIYA - 7 assessed: 05/20/25 Source: Developed by Drs. Arslan Fontenot, Jenn Win, Perez Cartagena and colleagues, with an educational stephen from [employer]. Review of Systems Const Reports daytime sleepiness, Reports difficulty sleeping and Denies headache(s) Eyes Denies loss of vision ENT Denies vertigo, Denies dizziness, Denies headache(s), Reports neck pain and Denies sore throat Card Denies chest pain, Denies leg edema and Denies lightheadedness Resp Denies cough, Denies hemoptysis and Denies wheezing GI Denies abdominal pain, Denies melena, Denies constipation, Denies diarrhea and Denies vomiting Denies dysuria, Denies urinary frequency and Denies urinary urgency Musc Reports arthralgias (Left elbow pain and left shoulder), Denies joint swelling, Reports neck pain, Denies numbness and Denies tingling Skin/Breast Reports furuncle (Upper back) Neuro Denies Abnormal speech present, Denies behavioral changes, Denies vertigo, Denies dizziness, Denies headache(s), Denies loss of vision, Denies memory loss, Denies numbness and Denies tingling Psych Reports anxiety (Feels like the room is closing in on him-affecting sleep), Denies behavioral changes, Denies depression, Denies memory loss and Denies panic attacks Rojelio/Lymph Denies easy bleeding and Denies easy bruising Aller/Immun Denies wheezing Physical exam (Primary Care) Vital Signs: Last Vital Signs Pulse 75 08/20/25 15:29 Resp 18 08/20/25 15:29 BP 118/68 08/20/25 15:29 Pulse Ox 97 08/20/25 15:29 Oxygen Delivery Method Room Air 08/20/25 15:29 BMI result Body Mass Index 38.4 Tobacco/Smoking Status: Tobacco use Status Tobacco use date assessed 08/20/25 08/20/25 15:41 Patient Tobacco Use Status Former Tobacco user (quite 08/20/25 15:31 2010) e-Cigarette/Vaping Use Never Used 08/20/25 15:31 Depression Screening Interpretation: Negative Thrive Assessment: Date of Thrive Assessment Date Thrive assessed 12/05/24 08/20/25 15:31 Currently or been in a relationship where the following occur: No concerns reported Const General: healthy appearing, no acute distress, alert and awake Nutritional Appearance: well nourished Orientation/consciousness: oriented to person, oriented to place and oriented to time HENMT Ears: TM's normal bilaterally General nose exam: Normal nasal mucous membranes and turbinates present Eyes Conjunctivae: conjunctivae normal Sclerae: sclerae normal Pupils: Equal, round and reactive pupils present Neck Neck: Yes no lymphadenopathy and Yes no JVD Thyroid: Thyroid normal Carotids: no bruits Resp Effort & Inspection: normal respiratory effort and not tachypneic Auscultation: no crackles, no rales, no rhonchi and no wheezes Cardio Rate: regular rate Rhythm: regular rhythm Heart sounds: no murmurs and normal S1 and S2 GI Palpation (GI): Soft to palpation, nontender, no hepatomegaly and no splenomegaly Auscultation: normal bowel sounds Skin General skin exam: no rashes or lesions noted and dry skin Neuro General: oriented to person, oriented to place and oriented to time Cranial nerves: Yes Equal, round and reactive pupils present Speech: No Abnormal speech present Gait exam (Neuro): Normal gait present Motor exam (neuro): no tremor noted Deep tendon reflexes (DTR's): Right brachioradialis reflex intensity grade: 2+, Left brachioradialis reflex intensity grade: 2+, Right patellar reflex intensity grade: 2+ and Left patellar reflex intensity grade: 2+ Extrem Right upper extremity: full ROM Left upper extremity: full ROM, shoulder/upper arm Details: tenderness (Over trapezius muscle); no swelling and elbow/forearm Details: no tenderness and no swelling Right lower extremity: full ROM; no edema Left lower extremity: full ROM; no edema Psych Mental Status: mental status grossly normal Speech and movement: Normal speech and movement present Affect: normal affect Attitude: cooperative Thought process: Normal thought process present Results Reviewed Results Reviewed: Laboratory Tests 07/20/25 07/20/25 09:40 09:42 WBC 4.0 L RBC 3.88 L Hgb 13.0 L Hct 38.4 L MCV 99.0 H MCH 33.5 H MCHC 33.9 RDW 13.3 Plt Count 193 Sodium 141 Potassium 5.1 Chloride 107 Carbon Dioxide 28 Anion Gap 11 L BUN 22 H Creatinine 0.91 Estimated GFR > 60 Fasting Glucose 208 H Estimat Average Glucose 154 Hemoglobin A1c % 7.0 H Calcium 9.6 D Total Bilirubin 0.3 AST 37 ALT 63 H Alkaline Phosphatase 31 L Total Protein 7.1 Albumin 4.8 Triglycerides 388 H Cholesterol 128 LDL Cholesterol, Calc 16 HDL Cholesterol 35 L 25-OH Vitamin D Total 27.8 L TSH 1.37 Urine Color Yellow Urine Appearance Clear Urine pH 5.0 Ur Specific [place] 1.025 Urine Protein 30 (1+) H Urine Glucose (UA) Negative Urine Ketones Negative Urine Blood Negative Urine Nitrite Negative Ur Leukocyte Esterase Negative Urine RBC 0-2 Urine WBC 0-5 Ur Squamous Epith Cells 0-2 Urine Bacteria None Seen Hyaline Casts 0-2 Coding Level of Care Code Est Pt Level 4 (63860) Diagnoses Hypertension, unspecified type I10 Hypertension type: unspecified Mixed hyperlipidemia E78.2 Hyperlipidemia type: mixed hyperlipidemia Diabetes mellitus associated with pancreatic disease E11.69; K86.9 Fatty liver K76.0 Elevated alanine aminotransferase (ALT) level R74.01 Diabetic polyneuropathy associated with diabetes mellitus due to underlying condition E08.42 Diabetes mellitus type: due to underlying condition Diabetes mellitus complication detail: diabetic polyneuropathy Neck pain on left side M54.2 Left elbow pain M25.522 Epidermal cyst L72.0 Right ankle pain, unspecified chronicity M25.571 Chronicity: unspecified Laterality: right Time Spent (min) 38 Assessment & Plan Assessment & Plan (1) HTN (hypertension): Code(s): I10 - Essential (primary) hypertension Category: Medical Qualifiers: Hypertension type: unspecified Qualified Code(s): I10 - Essential (primary) hypertension Plan: Reinforced low sodium diet. BP 118/68 in office, continue lisinopril 5 mg daily and atenolol 50 mg daily (2) Hyperlipidemia: Code(s): E78.5 - Hyperlipidemia, unspecified Category: Medical Qualifiers: Hyperlipidemia type: mixed hyperlipidemia Qualified Code(s): E78.2 - Mixed hyperlipidemia Plan: Triglycerides decreased from 884-388 Total cholesterol 128, LDL 16, HDL 35. Tri 884, total cholesterol 315 and HDL 38 on 12/08/2024. Significant improvement. Continue atorvastatin 80 mg daily, ezetimibe 10 mg daily, fenofibrate 200 mg daily We will recheck check lipid panel in 3 months (3) Diabetes mellitus associated with pancreatic disease: Code(s): E11.69 - Type 2 diabetes mellitus with other specified complication; K86.9 - Disease of pancreas, unspecified Category: Medical Plan: Patient reports that he has type C diabetes due to having pancreatitis three times. He is insulin dependent. His A1C is 7.0% increased from 6.1%-cautioned the patient that his A1c is trending in the wrong direction Reinforced low sugar/carbohydrate diet/activity as tolerated Continue degludec 90 units s.c at bedtime, lispro U-200 insulin 52 units s.c TID and metformin 1000mg BID Follow up with Endocrine as scheduled (4) Fatty liver: Code(s): K76.0 - Fatty (change of) liver, not elsewhere classified Category: Medical Plan: The patient reports that he was told that he has a fatty liver. Discussed with the patient that at times high cholesterol can cause fatty liver, so he should consume low fat/cholesterol foods Patient cholesterol is significantly elevated-he was out of his medications for a while. Medications were reordered and the patient already started taking medications at previous visit. Follow labs shows some improvement. (5) Elevated alanine aminotransferase (ALT) level: Code(s): R74.01 - Elevation of levels of liver transaminase levels Category: Medical Plan: Enzymes are mildly elevated. Patient does not fatty liver and is also on statins. Reinforced a diet low in cholesterol and activity as tolerated Refrain from taking Tylenol or drinking alcohol. Continue cholesterol-lowering medications. We will continue to monitor (6) Diabetic neuropathy: Code(s): E11.40 - Type 2 diabetes mellitus with diabetic neuropathy, unspecified Category: Medical Qualifiers: Diabetes mellitus type: due to underlying condition Diabetes mellitus complication detail: diabetic polyneuropathy Qualified Code(s): E08.42 - Diabetes mellitus due to underlying condition with diabetic polyneuropathy Plan: Continue gabapentin 600mg BID (7) Neck pain on left side: Code(s): M54.2 - Cervicalgia Category: Medical Plan: Ongoing Left neck pain radiating into left shoulder. Meloxicam 15 mg daily was ordered ordered. Cervical x-ray shows no bony abnormalities of the cervical spine, moderate spondylosis is present at C5-C6 and C6-C7. Mild degeneration present at C4-5, C2-3 and C3-4 discs are normal Continue conservative measures-warm compress, range of movement and stretches. Continue meloxicam 15 mg daily (8) Left elbow pain: Code(s): M25.522 - Pain in left elbow Category: Medical Plan: Left elbow x-ray is normal. No acute finding on exam. The patient pain has decreased significantly. (9) Epidermal cyst: Code(s): L72.0 - Epidermal cyst Category: Medical Plan: Purulent drainage was squeezed out of cyst. Minocycline 100 mg q.12 hours x7 days was ordered at previous visit. Patient reports reoccurring building up of drainage and has to be drained each time. Will refer the patient to general sugery for further evaluation. (10) Ankle pain: Code(s): M25.579 - Pain in unspecified ankle and joints of unspecified foot Category: Medical Qualifiers: Chronicity: unspecified Laterality: right Qualified Code(s): M25.571 - Pain in right ankle and joints of right foot Plan: Right ankle x-ray showed no radiographic evidence of acute fracture or disc location. Calcaneal spurring. The patient is awaiting clearance for MRI to further evaluate this. Orders: Orders Complete Blood Count Auto Diff 3 Months I10 - Essential (primary) hypertension, E78.2 - Mixed hyperlipidemia, E11.69 - Type 2 diabetes mellitus with other specified complication, K86.9 - Disease of pancreas, unspecified, K76.0 - Fatty (change of) liver, not elsewhere classified, R74.01 - Elevation of levels of liver transaminase levels, R06.81 - Apnea, not elsewhere classified, M25.522 - Pain in left elbow Comprehensive [place]. Panel Fast 3 Months I10 - Essential (primary) hypertension, E78.2 - Mixed hyperlipidemia, E11.69 - Type 2 diabetes mellitus with other specified complication, K86.9 - Disease of pancreas, unspecified, K76.0 - Fatty (change of) liver, not elsewhere classified, R74.01 - Elevation of levels of liver transaminase levels, R06.81 - Apnea, not elsewhere classified, M25.522 - Pain in left elbow Lipid Panel 3 Months I10 - Essential (primary) hypertension, E78.2 - Mixed hyperlipidemia, E11.69 - Type 2 diabetes mellitus with other specified complication, K86.9 - Disease of pancreas, unspecified, K76.0 - Fatty (change of) liver, not elsewhere classified, R74.01 - Elevation of levels of liver transaminase levels, R06.81 - Apnea, not elsewhere classified, M25.522 - Pain in left elbow Hemoglobin A1c 3 Months I10 - Essential (primary) hypertension, E78.2 - Mixed hyperlipidemia, E11.69 - Type 2 diabetes mellitus with other specified complication, K86.9 - Disease of pancreas, unspecified, K76.0 - Fatty (change of) liver, not elsewhere classified, R74.01 - Elevation of levels of liver transaminase levels, R06.81 - Apnea, not elsewhere classified, M25.522 - Pain in left elbow UA CC w/rflx Micro + Cult 3 Months I10 - Essential (primary) hypertension, E78.2 - Mixed hyperlipidemia, E11.69 - Type 2 diabetes mellitus with other specified complication, K86.9 - Disease of pancreas, unspecified, K76.0 - Fatty (change of) liver, not elsewhere classified, R74.01 - Elevation of levels of liver transaminase levels, R06.81 - Apnea, not elsewhere classified, M25.522 - Pain in left elbow TSH reflex Free T4 3 Months I10 - Essential (primary) hypertension, E78.2 - Mixed hyperlipidemia, E11.69 - Type 2 diabetes mellitus with other specified complication, K86.9 - Disease of pancreas, unspecified, K76.0 - Fatty (change of) liver, not elsewhere classified, R74.01 - Elevation of levels of liver transaminase levels, R06.81 - Apnea, not elsewhere classified, M25.522 - Pain in left elbow Microalbumin, Random (w Creat) 3 Months I10 - Essential (primary) hypertension, E78.2 - Mixed hyperlipidemia, E11.69 - Type 2 diabetes mellitus with other specified complication, K86.9 - Disease of pancreas, unspecified, K76.0 - Fatty (change of) liver, not elsewhere classified, R74.01 - Elevation of levels of liver transaminase levels, R06.81 - Apnea, not elsewhere classified, M25.522 - Pain in left elbow Medications: Changed From insulin lispro-aabc subcutaneously 50 units before breakfast, 40 units before lunch and 50 units before dinner To insulin lispro-aabc (Lyumjev KwikPen U-200 Insulin) subcutaneously 50 units before breakfast, 40 units before lunch and 50 units before dinner 6 mL 3RF From metformin 1,000 mg PO BID 30 days 60 tabs 3RF To metformin 1,000 mg PO BID 60 tabs 3RF 30 days Refilled atenolol 50 mg PO DAILY 30 tabs 3RF ezetimibe 10 mg PO DAILY 90 tabs 3RF fenofibrate micronized 200 mg PO DAILY 90 caps 3RF lisinopril 5 mg PO DAILY 30 tabs 3RF atorvastatin 80 mg PO DAILY 90 tabs 3RF gabapentin 600 mg PO BID 60 tabs 3RF trazodone 50 mg PO BEDTIME PRN 60 tabs 2RF sleep
== END 2025-08-20 16:13 | disposition home or self-care (01) ==
LOC: HO.HMCH 15:20
DX: I10 Essential (primary) hypertension (principal); E78.2 Mixed hyperlipidemia; E11.69 Type 2 diabetes mellitus with other specified complication; K86.9 Disease of pancreas, unspecified; K76.0 Fatty (change of) liver, not elsewhere classified; R74.01 Elevation of levels of liver transaminase levels; E11.42 Type 2 diabetes mellitus with diabetic polyneuropathy; M54.2 Cervicalgia; M25.522 Pain in left elbow; L72.0 Epidermal cyst; M25.571 Pain in right ankle and joints of right foot

== ENCOUNTER 2025-08-27 14:14 | Outpatient (AMB) | payer BC, SELFPAY ==
[2025-08-27 14:29] VITALS: BMI 37.9
--- NOTE | 2025-08-27 14:29 | A.OFFVIS_ITS ---
Vital Signs 08/27/25 14:29 Height 5 ft 7 in Weight 242 lb BMI 37.9 Intake Visit Reasons: Pain in unspecified ankle & joints of unspecified Intake Note: Yoni is a 60 year old male who presents today as a new patient for an evaluation of his right Achilles tendon pain. Patient reports he was going down the stairs and felt la cracking sensation in the back of his heel to the calf. The pain has been going on for about 1 month. Patient reports he purchased a walking boot and has found relief for his symptoms. Allergies No Known Allergies Allergy (Verified 08/27/25 14:30) HPI HPI Pain in unspecified ankle & joints of unspecified: Details: 60-year-old male with past medical history of diabetes mellitus type 2, hypertension presents for right calf and ankle pain. The patient states that proximally 1 month ago, he was walking on stairs and strained his ankle. He then felt a pop/cracked sensation and had immediate pain and swelling over the next few days. He had seen another provider who stated he might have a partial Achilles tear versus rupture. He was referred for an MRI which he is still waiting on. He then bought a Cam boot alignment she has been using daily other than when driving, which he notes significant relief from. He has been using the boot for approximately 2 weeks. Patient also states he is diabetic. Has not seen a package winder in the past. Denies any burning numbness tingling to his feet. Denies history of ulcerations. 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 Current occupational exposures/hazards: No Cognitive needs: No Hearing needs: No Vision needs: Yes (Glasses) Review of Systems Const All systems reviewed & are unremarkable except as noted in HPI and below Physical Exam Vital Signs: BMI result Body Mass Index 37.9 Extrem Other: *Bilateral Lower Extremity Focused Exam Vascular: DP/PT 2/4, CFT<3s to all digits, TG warm to cool, no pedal or tib edema Derm: No erythema or drainage or clinical signs of infection Neuro: Protective sensation grossly intact to bilateral lower extremities MSK: Moderate tenderness on palpation of the myotendinous junction of the right gastrocs/Achilles. Mild tenderness on active plantar flexion, no pain on maximum dorsiflexion. Results Reviewed Results Reviewed: Podiatry X-ray Read: 07/29/2025 X-ray right ankle 3 views (AP, Mortise, Lateral) reviewed which shows moderate insertional posterior calcaneal spur. Os trigonum present to the posterior talus. Small ossicle to the medial malleolus. no fractures, dislocations, osteochondral defects, or other gross abnormalities. Anatomic alignment of the tibiotalar joint. Bone density is within normal limits. No evidence of swelling, foreign body, or calcifications. I personally reviewed the imaging and my findings are listed above. Assessment & Plan Assessment & Plan (1) Gastrocnemius muscle tear: Code(s): S86.119A - Strain of other muscle(s) and tendon(s) of posterior muscle group at lower leg level, unspecified leg, initial encounter Category: Medical Qualifiers: Encounter type: initial encounter Laterality: right Qualified Code(s): S86.111A - Strain of other muscle(s) and tendon(s) of posterior muscle group at lower leg level, right leg, initial encounter Plan: * Differential diagnosis includes myotendinous tear, gastroc tear, achilles tear vs strain. * Reviewed right ankle x-ray with the patient. * Continue CAM boot for 2 more weeks * Recommended calf sleeve * Recommended ROM exercises. Hand-out dispensed. * Referred to physical therapy * Pending MRI. * Follow up in 2 weeks. Orders: Orders PT Evaluation and Treatment Today S86.111A - Strain of other muscle(s) and tendon(s) of posterior muscle group at lower leg level, right leg, initial encounter Coding Level of Care Code New Pt Level 4 (72566) Diagnoses Rupture of right gastrocnemius tendon, initial encounter S86.111A Encounter type: initial encounter Laterality: right Time Spent (min) 35
== END 2025-08-27 14:47 | disposition home or self-care (01) ==
LOC: HO.HPODS 14:14
PROVIDERS: Visit Provider Student in an Organized Health Care Education/Training Program
DX: S86.111A Strain of other muscle(s) and tendon(s) of posterior muscle group at lower leg level, right leg, initial encounter (principal)
CPT/HCPCS: 99204

== ENCOUNTER 2025-09-24 15:19 | Outpatient (REF) | payer BC, SELFPAY | END 2025-09-24 15:20 | disposition home or self-care (01) | LOC: HO.LAB 15:19 | PROVIDERS: Visit Provider Physician Assistant Medical | DX: E11.69 Type 2 diabetes mellitus with other specified complication (principal); K86.9 Disease of pancreas, unspecified; Z79.4 Long term (current) use of insulin | CPT/HCPCS: 82947; 83036 ==

== ENCOUNTER 2025-09-24 15:19 | Outpatient (AMB) | payer BC, SELFPAY ==
[2025-09-24 15:31] VITALS: BP 124/74; PULSE 85; O2SAT 96; BMI 38.6
--- NOTE | 2025-09-24 15:31 | MHC.OFFVIS ---
Vital Signs 09/24/25 15:31 Height 5 ft 7 in Weight 246 lb 11.156 oz BMI 38.6 BP 124/74 Blood Pressure Location Lt brachial Position Sitting Pulse 85 Pulse Source Pulse Oximeter Pulse Oximetry (%) 96 Oxygen Delivery Method Room Air Intake Visit Reasons: diabetes follow up Intake Note: Patient present today to follow up on T2DM. Last Diabetic Eye exam: 1.5 or 2 years ago, requesting referral Last Podiatry Visit: Last visit was about weeks ago. Random Glucose: 99 mg/dl HgA1C: 6.6% Marketing Communications Specialist Required: No Accompanied by: Self / Same As Patient Allergies No Known Allergies Allergy (Verified 09/24/25 15:39) HPI Comments Details: This is a 60-year-old male with a past medical history of hepatic steatosis, hypertension, diabetes associated with pancreatic disease and hyperlipidemia presenting for diabetic management. He was diagnosed with diabetes over 15 years ago. 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 He has a family history of type 2 diabetes. C-peptide, RIYA and islet cell antibody were ordered but not done at the lab when he had his blood work drawn. He will do this today. He does not drink alcohol. He quit smoking 15 years ago. Hemoglobin a1c 6.6%. GMI 7.5% Average glucose 175 5% very high 41% high 53% in range <1% low Current medication regimen: Tresiba 90 units daily and insulin lispro 40-50 units three times before meals and metformin 1000 mg twice a day. A few weeks ago he was having high blood sugar up to 300. He had an ankle injury, so he was not exercising. He started exercising again, and he sees blood sugars are coming down. He was taking as much as 60 units of lispro 3 times a day during that time. Past medications: Novolin changed to Tresiba and lispro when [place] moved [place]. Patient says he was on Tresiba 85 units twice a day, but he was going to run out of the medication when he was relocating to [place] so he decreased it so it would last longer. Previously on Jardiance, but he stopped taking it when he moved to [place] because he never disclosed he had was taking it before. He had no side effects on it. Compliance issues: none Hypoglycemia symptoms: None Hyperglycemia symptoms: Polydipsia, dry mouth Eye exam: Referred in June, and I gave him the phone number to call to schedule this today. Microvascular complications: neuropathy in feet and hands Macrovascular complications: none Hypertension: treated with lisinopril 5 mg, atenolol 50 mg Hyperlipidemia: treated with atorvastatin 80 mg, Zetia 10 mg, fenofibrate 200 mg. Seen by Podiatry 2 weeks ago. ROS: Constitutional: No unexplained weight loss, fever, chills, fatigue or night sweats. Eyes: No vision changes, blurry vision, double vision Respiratory: No shortness of breath, cough or sputum production. Cardiovascular: No chest pain, chest pressure or chest discomfort. No palpitations or pedal edema. Neurologic: No headache, dizziness, syncope, unilateral weakness, ataxia Skin: No rash or open wounds Endocrine: No cold or heat intolerance. No polyuria or polydipsia. Physical exam: Constitutional: Alert, in no distress. Eyes: Pupils are equal, round and reactive to light. Extraocular muscles intact. Neck: Supple, Full range of motion. No lymphadenopathy. No palpable thyroid masses. Respiratory: Clear to auscultation. Cardiovascular: S1 S2 regular. No murmurs. 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 Current occupational exposures/hazards: No Cognitive needs: No Hearing needs: No Vision needs: Yes (Glasses) Physical Exam Vital Signs: Last Vital Signs Pulse 85 09/24/25 15:31 BP 124/74 09/24/25 15:31 Pulse Ox 96 09/24/25 15:31 Oxygen Delivery Method Room Air 09/24/25 15:31 BMI result Body Mass Index 38.6 Results AMB Hemoglobin A1c AMB Hemoglobin A1c 6.6 % Last Edit by GUERITA Verde on 09/24/25 16:00 Results Reviewed Results Reviewed: Laboratory Last Values Glucose (Clinic) 99 mg/dL (60-115) 09/24/25 15:41 Laboratory Tests 07/20/25 09:42 Creatinine 0.91 Estimated GFR > 60 AST 37 ALT 63 H Triglycerides 388 H Cholesterol 128 LDL Cholesterol, Calc 16 HDL Cholesterol 35 L TSH 1.37 Assessment & Plan Assessment & Plan (1) Diabetes mellitus associated with pancreatic disease: Code(s): E11.69 - Type 2 diabetes mellitus with other specified complication; K86.9 - Disease of pancreas, unspecified Category: Medical Plan In summary this is a 60-year-old male with a past medical history of diabetes due to pancreatic injury. Hemoglobin A1c is at target of less than 7%. Continue Tresiba 90 units daily. Continue insulin lispro 42 50 units before breakfast, lunch and dinner. Continue metformin a 1000 mg twice daily. I would like to start him on Jardiance. He will have RIYA, islet cell antibody and C-peptide resulted 1st. He is going to the lab today. He is interested in an insulin pump. Plan to refer to [facility] once labs are resulted. Referred for eye exam phone number given to schedule. Diabetic diet reinforced. He is exercising again. His blood pressure is well-controlled. He is on an ENRIKE inhibitor. Reviewed treatment of hypoglycemia. Follow up in 3 months for diabetes. Orders: Orders Islet Cell Antibody Scrn/Titer Today E11.69 - Type 2 diabetes mellitus with other specified complication, K86.9 - Disease of pancreas, unspecified C Peptide Today E11.69 - Type 2 diabetes mellitus with other specified complication, K86.9 - Disease of pancreas, unspecified AMB Hemoglobin A1c Today E11.69 - Type 2 diabetes mellitus with other specified complication, K86.9 - Disease of pancreas, unspecified, Z13.9 - Encounter for screening, unspecified Glutamic acid decarboxylase Ab Today E11.69 - Type 2 diabetes mellitus with other specified complication, K86.9 - Disease of pancreas, unspecified Medications: Refilled blood-glucose sensor (Brightergy G7 Sensor device) apply new sensor every 10 days as directed 9 ea 3RF E11.69 - Type 2 diabetes mellitus with other specified complication, K86.9 - Disease of pancreas, unspecified lisinopril 5 mg PO DAILY 90 tabs 3RF Patient Instructions: Please call [facility] at [phone] to schedule your eye exam. Coding Level of Care Code Est Pt Level 4 (74623) Add On Problem Visit Only Diagnoses Diabetes mellitus associated with pancreatic disease E11.69; K86.9
[2025-09-24 15:44] LABS: Glucose, Whole Blood 99 mg/dL (60-115)
== END 2025-09-24 16:18 | disposition home or self-care (01) ==
LOC: HO.ENCR 15:19
PROVIDERS: Visit Provider Physician Assistant Medical
DX: Z13.9 Encounter for screening, unspecified (principal); E11.69 Type 2 diabetes mellitus with other specified complication; K86.9 Disease of pancreas, unspecified